=== PATIENT | male | born 1935 | race Caucasian/White ===

== ENCOUNTER 2016-10-09 12:29 | Emergency (ER) | payer MEDICARE, BC ==
--- NOTE | 2016-10-09 12:31 | EDM.PDOC ---
ED HPI GENERAL MEDICAL PROBLEM - General Chief Complaint: Respiratory Problem Stated Complaint: [id number] SOB Time Seen by Provider: 10/09/16 12:31 Source of Information: Reports: Patient, Old Records, RN, RN Notes Reviewed History Limitations: Reports: No Limitations - History of Present Illness INITIAL COMMENTS - FREE TEXT/NARRATIVE: Complaining of 3 days of progressively worsening SOB. History of COPD, was on home oxygen but "they took it away". Denies cough, fever, chills, chest pain, edema, abdominal, nausea or vomiting. Severity: Severe Improves with: Reports: None Worsens with: Reports: None Associated Symptoms: Reports: No Other Symptoms - Related Data Allergies Allergy/AdvReac Type Severity Reaction Status Date / Time No Known Allergies Allergy Verified 10/09/16 12:33 Home Meds: Home Meds Albuterol [IJD: Ventolin HFA] 3 puff INH Q4HR PRN 10/09/16 [History] Aspirin [Halfprin] 81 mg PO DAILY 10/09/16 [History] Budesonide [Pulmicort] 2 ml NEB BID 10/09/16 [History] Clopidogrel Bisulfate [Clopidogrel] 75 mg PO DAILY 10/09/16 [History] Diltiazem HCl [Dilt-XR] 120 mg PO DAILY 10/09/16 [History] Fluticasone Propionate [Fluticasone Propionate] 1 spray HELEN DAILY 10/09/16 [ History] Formoterol [Perforomist] 2 ml NEB BID 10/09/16 [History] Furosemide [Lasix] 20 mg PO DAILY 10/09/16 [History] LORazepam [LORazepam] 0.5 mg PO BID PRN 10/09/16 [History] Multivitamin [Multi-Day Vitamins] 1 tab PO DAILY 10/09/16 [History] Omeprazole 40 mg PO BEDTIME 10/09/16 [History] Potassium Chloride [Potassium Chloride] 10 meq PO DAILY 10/09/16 [History] Theophylline [Theophylline Anhydrous] 300 mg PO DAILY 10/09/16 [History] Tiotropium [Spiriva Handihaler] 2 puff INH DAILY 10/09/16 [History] atorvaSTATin Calcium [Atorvastatin Calcium] 40 mg PO BEDTIME 10/09/16 [History] Past Medical History Cardiovascular History: Reports: Hypertension, Other (See Below) (PVCs. Tachycardia) Respiratory History: Reports: COPD Psychiatric History: Reports: Anxiety Social & Family History - Family History Family Medical History: Noncontributory - Tobacco Use Smoking Status *Q: Current Every Day Smoker Years of Tobacco use: 65 Second Hand Smoke Exposure: No - Recreational Drug Use Recreational Drug Use: No - Living Situation & Occupation Living situation: Reports: , with Spouse Occupation: Retired ED ROS GENERAL - Review of Systems Review Of Systems: ROS reveals no pertinent complaints other than HPI. ED EXAM, GENERAL - Physical Exam Exam: See Below Exam Limited By: No Limitations General Appearance: Other (frail elderly, chronically ill appearing. ) Eye Exam: Bilateral Eye: Normal Inspection Ears: Normal External Exam, Normal Canal, Hearing Grossly Normal, Normal TMs Nose: Normal Inspection, Normal Mucosa, No Blood Throat/Mouth: Normal Inspection, Normal Lips, Normal Teeth, Normal Gums, Normal Oropharynx, Normal Voice, No Airway Compromise Head: Atraumatic, Normocephalic Neck: Normal Inspection, Supple, Non-Tender, Full Range of Motion Respiratory/Chest: Decreased Breath Sounds (bilateral bases, tight inspiratory/ expiratory wheezes.) Cardiovascular: Normal Peripheral Pulses, Regular Rate, Rhythm, No Edema, No Gallop, No JVD, No Murmur, No Rub GI/Abdominal: Normal Bowel Sounds, Soft, Non-Tender, No Organomegaly, No Distention, No Abnormal Bruit, No Mass (Male) Exam: Deferred Rectal (Males) Exam: Deferred Back Exam: Normal Inspection, Full Range of Motion, NT Extremities: Normal Inspection, Normal Range of Motion, Non-Tender, Normal Capillary Refill, No Pedal Edema Neurological: Alert, Oriented, CN II-XII Intact, Normal Cognition, Normal Gait, Normal Reflexes, No Motor/Sensory Deficits Psychiatric: Normal Affect, Normal Mood Skin Exam: Warm, Dry, Intact, Normal Color, No Rash Lymphatic: No Adenopathy EKG INTERPRETATION EKG Date: 10/09/16 Time: 12:43 Rhythm: other (sinus rhythm) Rate (beats/min): 82 [place]: normal P-wave: present QRS: other (LAFB. old anterior Q waves.) ST-T: normal QT: normal Course - Vital Signs Last Recorded V/S: Last Vital Signs Temp 36.4 C 10/09/16 12:33 Pulse 76 10/09/16 14:43 Resp 20 10/09/16 14:43 BP 135/84 10/09/16 14:43 Pulse Ox 93 L 10/09/16 14:43 - Orders/Labs/Meds Orders: Active Orders 24 hr Category Date Time Status EKG 12 Lead [EKG Documentation Completion] [RC] STAT Care 10/09/16 12:34 Active Peripheral IV Care [RC] . DIRECTED Care 10/09/16 12:35 Active RT Aerosol Therapy [RC] ASDIRECTED Care 10/09/16 12:34 Active CULTURE BLOOD [BC] Stat Lab 10/09/16 12:47 Received CULTURE BLOOD [BC] Stat Lab 10/09/16 12:52 Received THEOPHYLLINE [REF] Stat Lab 10/09/16 12:52 Received Sodium Chloride 0.9% [Saline Flush] Med 10/09/16 12:35 Active 10 ml FLUSH ASDIRECTED PRN Blood Culture x2 Reflex Set [OM.PC] Stat Oth 10/09/16 12:35 Ordered Peripheral IV Insertion Adult [OM.PC] Stat Oth 10/09/16 12:34 Ordered RT Supplemental Oxygen Titration [RESPCARE] Stat Oth 10/09/16 12:35 Active Medication Orders Sodium Chloride (Saline Flush) 10 ml FLUSH ASDIRECTED PRN PRN Reason: Keep Vein Open Last Admin: 10/09/16 12:51 Dose: 10 ml Labs: Laboratory Tests 10/09/16 10/09/16 10/09/16 Range/Units 12:52 12:52 12:52 WBC 8.4 (5.0-10.0) 10^3/uL RBC 4.68 (4.6-6.2) 10^6/uL Hgb 13.4 L (14.0-18.0) g/dL Hct 40.9 (40.0-54.0) % MCV 87.4 (80-100) fL MCH 28.6 (27.0-34.0) pg MCHC 32.8 L (33.0-35.0) g/dL Plt Count 220 (150-450) 10^3/uL Neut % (Auto) 72.8 (42.2-75.2) % Lymph % (Auto) 14.8 L (20.5-50.1) % [place] % (Auto) 9.3 H (2-8) % Eos % (Auto) 2.1 (1.0-3.0) % Baso % (Auto) 1.0 (0.0-1.0) % Sodium 141 (135-145) mmol/L Potassium 3.5 L (3.6-5.0) mmol/L Chloride 102 (101-111) mmol/L Carbon Dioxide 27.0 (21.0-31.0) mmol/L Anion Gap 15.5 BUN 16 (7-18) mg/dL Creatinine 1.5 H (0.6-1.3) mg/dL Est Cr Clr Drug Dosing TNP Estimated GFR (MDRD) 45 BUN/Creatinine Ratio 10.66 Glucose 124 H (74-105) mg/dL Lactic Acid 1.6 (0.5-2.2) mmol/L Calcium 9.1 (8.4-10.2) mg/dl Total Bilirubin 0.6 (0.2-1.0) mg/dL AST 18 (10-42) IU/L ALT 17 (10-60) IU/L Alkaline Phosphatase 81 (42-121) IU/L Troponin I < 0.02 (0.00-0.02) ng/ml B-Natriuretic Peptide 214 H (0-100) pg/ml Total Protein 6.7 (6.7-8.2) g/dl Albumin 4.0 (3.2-5.5) g/dl Globulin 2.7 Albumin/Globulin Ratio 1.48 Urine Color (YELLOW) Urine Appearance (CLEAR) Urine pH (5.0-9.0) Ur Specific [place] (1.005-1.030) Urine Protein (NEGATIVE) Urine Glucose (UA) (NEGATIVE) Urine Ketones (NEGATIVE) Urine Occult Blood (NEGATIVE) Urine Nitrite (NEGATIVE) Urine Bilirubin (NEGATIVE) Urine Urobilinogen (0.2-1.0) mg/dL Ur Leukocyte Esterase (NEGATIVE) Urine RBC /HPF Urine WBC (0-5/HPF) /HPF Ur Epithelial Cells /HPF Urine Bacteria (0-FEW/HPF) /HPF 10/09/16 Range/Units 13:15 WBC (5.0-10.0) 10^3/uL RBC (4.6-6.2) 10^6/uL Hgb (14.0-18.0) g/dL Hct (40.0-54.0) % MCV (80-100) fL MCH (27.0-34.0) pg MCHC (33.0-35.0) g/dL Plt Count (150-450) 10^3/uL Neut % (Auto) (42.2-75.2) % Lymph % (Auto) (20.5-50.1) % [place] % (Auto) (2-8) % Eos % (Auto) (1.0-3.0) % Baso % (Auto) (0.0-1.0) % Sodium (135-145) mmol/L Potassium (3.6-5.0) mmol/L Chloride (101-111) mmol/L Carbon Dioxide (21.0-31.0) mmol/L Anion Gap BUN (7-18) mg/dL Creatinine (0.6-1.3) mg/dL Est Cr Clr Drug Dosing Estimated GFR (MDRD) BUN/Creatinine Ratio Glucose (74-105) mg/dL Lactic Acid (0.5-2.2) mmol/L Calcium (8.4-10.2) mg/dl Total Bilirubin (0.2-1.0) mg/dL AST (10-42) IU/L ALT (10-60) IU/L Alkaline Phosphatase (42-121) IU/L Troponin I (0.00-0.02) ng/ml B-Natriuretic Peptide (0-100) pg/ml Total Protein (6.7-8.2) g/dl Albumin (3.2-5.5) g/dl Globulin Albumin/Globulin Ratio Urine Color Yellow (YELLOW) Urine Appearance Clear (CLEAR) Urine pH 7.0 (5.0-9.0) Ur Specific [place] 1.015 (1.005-1.030) Urine Protein Negative (NEGATIVE) Urine Glucose (UA) Negative (NEGATIVE) Urine Ketones Negative (NEGATIVE) Urine Occult Blood Negative (NEGATIVE) Urine Nitrite Negative (NEGATIVE) Urine Bilirubin Negative (NEGATIVE) Urine Urobilinogen 0.2 (0.2-1.0) mg/dL Ur Leukocyte Esterase Negative (NEGATIVE) Urine RBC Not seen /HPF Urine WBC 0-5 (0-5/HPF) /HPF Ur Epithelial Cells Rare /HPF Urine Bacteria Rare (0-FEW/HPF) /HPF Meds: Medications Generic Name Dose Route Start Last Admin Trade Name Freq PRN Reason Stop Dose Admin Sodium Chloride 10 ml 10/09/16 12:35 10/09/16 12:51 Saline Flush FLUSH 10 ml ASDIRECTED PRN Administration Keep Vein Open Discontinued Medications Generic Name Dose Route Start Last Admin Trade Name Susie PRN Reason Stop Dose Admin Albuterol/Ipratropium 3 ml 10/09/16 12:34 10/09/16 12:51 Duoneb 3.0-0.5 Mg/3 Ml NEB 10/09/16 12:35 3 ml ONETIME ONE Administration Methylprednisolone Sodium Succinate 125 mg 10/09/16 12:36 10/09/16 12:51 Solu-Medrol IVPUSH 10/09/16 12:37 125 mg ONETIME ONE Administration - Radiology Interpretation Free Text/Narrative:: Chest x-ray: Hyperinflation with flattened diaphragms. Chronic COPD changes. No focal infiltrate. See rad report. Departure - Departure Time of Disposition: 14:44 Disposition: DC/Tfer to Acute Hospital 02 Condition: serious Clinical Impression: COPD with acute exacerbation, Ventricular tachycardia (paroxysmal) - Discharge Information Forms: ED Department Discharge, Interfacility Transfer EMTALA - My Orders Last 24 Hours: My Active Orders 10/09/16 12:34 EKG 12 Lead [EKG Documentation Completion] [RC] STAT RT Aerosol Therapy [RC] ASDIRECTED Peripheral IV Insertion Adult [OM.PC] Stat 10/09/16 12:35 Peripheral IV Care [RC] . DIRECTED Sodium Chloride 0.9% [Saline Flush] 10 ml FLUSH ASDIRECTED PRN Blood Culture x2 Reflex Set [OM.PC] Stat RT Supplemental Oxygen Titration [RESPCARE] Stat 10/09/16 12:47 CULTURE BLOOD [BC] Stat 10/09/16 12:52 CULTURE BLOOD [BC] Stat THEOPHYLLINE [REF] Stat - Assessment/Plan Last 24 Hours: My Active Orders 10/09/16 12:34 EKG 12 Lead [EKG Documentation Completion] [RC] STAT RT Aerosol Therapy [RC] ASDIRECTED Peripheral IV Insertion Adult [OM.PC] Stat 10/09/16 12:35 Peripheral IV Care [RC] . DIRECTED Sodium Chloride 0.9% [Saline Flush] 10 ml FLUSH ASDIRECTED PRN Blood Culture x2 Reflex Set [OM.PC] Stat RT Supplemental Oxygen Titration [RESPCARE] Stat 10/09/16 12:47 CULTURE BLOOD [BC] Stat 10/09/16 12:52 CULTURE BLOOD [BC] Stat THEOPHYLLINE [REF] Stat
[2016-10-09] MEDS ORDERED: Albuterol/Ipratropium 3.0-0.5 MG/3 ML Neb Soln NEB ONE (12:34)
[2016-10-09] MEDS ORDERED: Sodium Chloride 0.9% 10 ML Syringe FLUSH PRN (12:35)
[2016-10-09] MEDS ORDERED: methylPREDNISolone Sodium Succinate 125 MG/2 ML SDV IVPUSH ONE (12:36)
[2016-10-09 13:30] LABS: CHLORIDE,CL 102 mmol/L (101-111); SODIUM,NA 141 mmol/L (135-145)
[2016-10-09 14:44] VITALS: BP 135/84
--- NOTE | 2016-10-31 09:31 | EKG ---
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 [facility] /[id number]
== END 2016-10-09 15:11 ==
LOC: DL.ED 12:29
DX: J44.1 Chronic obstructive pulmonary disease with (acute) exacerbation (principal); I47.2 Ventricular tachycardia; I10 Essential (primary) hypertension; Z79.899 Other long term (current) drug therapy; Z79.82 Long term (current) use of aspirin; F17.210 Nicotine dependence, cigarettes, uncomplicated
CPT/HCPCS: 36415; 71010; 80053; 80198; 81001; 83605; 83880; 84484; 85025; 87040; 93005; 93010; 94640; 96374; 99285; J2930; J7050; 99284

== ENCOUNTER 2017-01-29 14:10 | Emergency (ER) | payer MEDICARE, BC ==
[2017-01-29] MEDS ORDERED: Sodium Chloride 0.9% 10 ML Syringe FLUSH PRN (14:40)
[2017-01-29] MEDS ORDERED: LORazepam 2 MG/ML Syringe IVPUSH ONE (14:42)
--- NOTE | 2017-01-29 15:09 | EDM.PDOC ---
ED HPI GENERAL MEDICAL PROBLEM - General Chief Complaint: Respiratory Problem Stated Complaint: HARD TIME BREATHING [id number] Time Seen by Provider: 01/29/17 14:50 Source of Information: Reports: Patient, Family, RN Notes Reviewed History Limitations: Reports: No Limitations - History of Present Illness INITIAL COMMENTS - FREE TEXT/NARRATIVE: lWeakness with decreased appetite since 01/24/17. Discharged from hospital in September with CHF. Was seen by cardiology on 01/24/17. Minimal bloody nose on . No fever or chills. No nausea or vomiting. Sputum production white with occasional cough. Occasional pressure in chest and SOB. Scribed by Jada Tucker. Location: Reports: Chest Quality: Reports: Ache Severity: Moderate Improves with: Reports: None Worsens with: Reports: None Associated Symptoms: Reports: No Other Symptoms - Related Data Allergies Allergy/AdvReac Type Severity Reaction Status Date / Time No Known Allergies Allergy Verified 10/09/16 12:33 Home Meds: Home Meds Albuterol [IJD: Ventolin HFA] 3 puff INH Q4HR PRN 10/09/16 [History] Aspirin [Halfprin] 81 mg PO DAILY 10/09/16 [History] Budesonide [Pulmicort] 2 ml NEB BID 10/09/16 [History] Clopidogrel Bisulfate [Clopidogrel] 75 mg PO DAILY 10/09/16 [History] Diltiazem HCl [Dilt-XR] 120 mg PO DAILY 10/09/16 [History] Fluticasone Propionate [Fluticasone Propionate] 2 spray HELEN DAILY 10/09/16 [ History] Formoterol [Perforomist] 2 ml NEB BID 10/09/16 [History] Furosemide [Lasix] 40 mg PO DAILY 10/09/16 [History] Multivitamin [Multi-Day Vitamins] 1 tab PO DAILY 10/09/16 [History] Omeprazole 40 mg PO BEDTIME 10/09/16 [History] Potassium Chloride [Potassium Chloride] 10 meq PO DAILY 10/09/16 [History] Tiotropium [Spiriva Handihaler] 2 puff INH DAILY 10/09/16 [History] atorvaSTATin Calcium [Atorvastatin Calcium] 40 mg PO BEDTIME 10/09/16 [History] Past Medical History HEENT History: Reports: Impaired Vision Other HEENT History: wears glasses Cardiovascular History: Reports: Heart Failure, Hypertension Respiratory History: Reports: COPD Gastrointestinal History: Reports: GERD Psychiatric History: Reports: Anxiety Immunologic History: Reports: None Oncologic (Cancer) History: Reports: None Social & Family History - Family History Family Medical History: Noncontributory - Tobacco Use Smoking Status *Q: Former Smoker Years of Tobacco use: 50 Packs/Tins Daily: 0.5 Used Tobacco, but Quit: Yes Month Tobacco Last Used: october 15 Second Hand Smoke Exposure: No - Caffeine Use Caffeine Use: Reports: Coffee, Soda - Recreational Drug Use Recreational Drug Use: No - Living Situation & Occupation Living situation: Reports: , with Spouse Occupation: Retired ED ROS GENERAL - Review of Systems Review Of Systems: ROS reveals no pertinent complaints other than HPI. ED EXAM, GENERAL - Physical Exam Exam: See Below Exam Limited By: No Limitations General Appearance: Alert, WD/WN, No Apparent Distress Eye Exam: Bilateral Eye: Normal Inspection Ears: Normal External Exam, Normal Canal, Hearing Grossly Normal, Normal TMs Nose: Normal Inspection, Normal Mucosa, No Blood Throat/Mouth: Normal Inspection, Normal Lips, Normal Teeth, Normal Gums, Normal Oropharynx, Normal Voice, No Airway Compromise Head: Atraumatic, Normocephalic Neck: Normal Inspection, Supple, Non-Tender, Full Range of Motion Respiratory/Chest: Decreased Breath Sounds Cardiovascular: Other (distant heart sounds.) GI/Abdominal: Normal Bowel Sounds, Soft, Non-Tender, No Organomegaly, No Distention, No Abnormal Bruit, No Mass (Male) Exam: Deferred Rectal (Males) Exam: Deferred Back Exam: Normal Inspection, Full Range of Motion, NT Extremities: Normal Inspection, Normal Range of Motion, Non-Tender, Normal Capillary Refill, No Pedal Edema Neurological: Alert, Oriented, CN II-XII Intact, Normal Cognition, Normal Gait, Normal Reflexes, No Motor/Sensory Deficits Psychiatric: Anxious Skin Exam: Other (pale) Lymphatic: No Adenopathy EKG INTERPRETATION EKG Date: 01/29/17 Time: 14:55 Rhythm: NSR Comparison: NA - No Prior EKG Course - Vital Signs Last Recorded V/S: Last Vital Signs Temp 98.8 F 01/29/17 14:19 Pulse 94 01/29/17 15:41 Resp 16 01/29/17 15:41 BP 136/77 01/29/17 15:41 Pulse Ox 100 01/29/17 15:41 - Orders/Labs/Meds Orders: Active Orders 24 hr Category Date Time Status EKG Documentation Completion [RC] STAT Care 01/29/17 14:40 Active Peripheral IV Care [RC] . DIRECTED Care 01/29/17 14:41 Active Sodium Chloride 0.9% [Saline Flush] Med 01/29/17 14:40 Active 10 ml FLUSH ASDIRECTED PRN Peripheral IV Insertion Adult [OM.PC] Stat Oth 01/29/17 14:40 Ordered Medication Orders Sodium Chloride (Saline Flush) 10 ml FLUSH ASDIRECTED PRN PRN Reason: Keep Vein Open Last Admin: 01/29/17 15:36 Dose: 10 ml Labs: Laboratory Tests 01/29/17 01/29/17 01/29/17 Range/Units 14:50 14:50 14:50 WBC 8.4 (5.0-10.0) 10^3/uL RBC 4.11 L (4.6-6.2) 10^6/uL Hgb 12.4 L (14.0-18.0) g/dL Hct 37.3 L (40.0-54.0) % MCV 90.8 D (80-100) fL MCH 30.2 (27.0-34.0) pg MCHC 33.2 (33.0-35.0) g/dL Plt Count 210 (150-450) 10^3/uL Neut % (Auto) 65.5 (42.2-75.2) % Lymph % (Auto) 17.7 L (20.5-50.1) % [place] % (Auto) 11.3 H (2-8) % Eos % (Auto) 4.4 H (1.0-3.0) % Baso % (Auto) 1.1 H (0.0-1.0) % Sodium 141 (135-145) mmol/L Potassium 3.9 (3.6-5.0) mmol/L Chloride 98 L (101-111) mmol/L Carbon Dioxide 33.0 H (21.0-31.0) mmol/L Anion Gap 13.9 BUN 22 H (7-18) mg/dL Creatinine 1.3 (0.6-1.3) mg/dL Est Cr Clr Drug Dosing 43.85 mL/min Estimated GFR (MDRD) 53 BUN/Creatinine Ratio 16.92 Glucose 115 H (74-105) mg/dL Calcium 9.3 (8.4-10.2) mg/dl Total Bilirubin 0.7 (0.2-1.0) mg/dL AST 21 (10-42) IU/L ALT 23 (10-60) IU/L Alkaline Phosphatase 72 (42-121) IU/L Troponin I < 0.02 (0.00-0.02) ng/ml Total Protein 6.8 (6.7-8.2) g/dl Albumin 3.9 (3.2-5.5) g/dl Globulin 2.9 Albumin/Globulin Ratio 1.34 TSH, Ultra Sensitive 0.08 L (0.45-5.33) uIu/mL Meds: Medications Generic Name Dose Route Start Last Admin Trade Name Freq PRN Reason Stop Dose Admin Sodium Chloride 10 ml 01/29/17 14:40 01/29/17 15:36 Saline Flush FLUSH 10 ml ASDIRECTED PRN Administration Keep Vein Open Discontinued Medications Generic Name Dose Route Start Last Admin Trade Name Freq PRN Reason Stop Dose Admin Lorazepam 0.5 mg 01/29/17 14:42 01/29/17 15:35 Ativan IVPUSH 01/29/17 14:43 0.5 mg ONETIME ONE Administration Departure - Departure Time of Disposition: 17:13 Disposition: Home, Self-Care 01 Condition: Fair Clinical Impression: Hypothyroidism Qualifiers: Hypothyroidism type: unspecified Qualified Code(s): E03.9 - Hypothyroidism, unspecified - Discharge Information Instructions: Hypothyroidism Referrals: PCP,Not In Area [Primary Care Provider] - Forms: ED Department Discharge Additional Instructions: Call for an appointment with your primary care provider tomorrow am. Drink plenty of fluids. Rest. Take Ativan (lorazepam) as directed by your primary care provider. - My Orders Last 24 Hours: My Active Orders 01/29/17 14:40 EKG Documentation Completion [RC] STAT Sodium Chloride 0.9% [Saline Flush] 10 ml FLUSH ASDIRECTED PRN Peripheral IV Insertion Adult [OM.PC] Stat 01/29/17 14:41 Peripheral IV Care [RC] . DIRECTED - Assessment/Plan Last 24 Hours: My Active Orders 01/29/17 14:40 EKG Documentation Completion [RC] STAT Sodium Chloride 0.9% [Saline Flush] 10 ml FLUSH ASDIRECTED PRN Peripheral IV Insertion Adult [OM.PC] Stat 01/29/17 14:41 Peripheral IV Care [RC] . DIRECTED
[2017-01-29 15:17] LABS: CHLORIDE,CL 98 mmol/L (101-111); SODIUM,NA 141 mmol/L (135-145)
[2017-01-29 15:42] VITALS: BP 136/77
--- NOTE | 2017-02-13 07:46 | EKG ---
01/29/2017- DIMPLE MURPHY - This is a standard 12-lead EKG showing normal sinus rhythm with ventricular rate 89 beats per minute. Significant low voltage throughout. No significant ST-T changes. [facility] /[id number]
== END 2017-01-29 17:48 | disposition home or self-care (01) ==
LOC: DL.ED 14:10
DX: E03.9 Hypothyroidism, unspecified (principal); J44.9 Chronic obstructive pulmonary disease, unspecified; I11.0 Hypertensive heart disease with heart failure; I50.9 Heart failure, unspecified; K21.9 Gastro-esophageal reflux disease without esophagitis; F41.9 Anxiety disorder, unspecified; Z87.891 Personal history of nicotine dependence; Z79.82 Long term (current) use of aspirin; Z79.02 Long term (current) use of antithrombotics/antiplatelets; Z79.899 Other long term (current) drug therapy
CPT/HCPCS: 36415; 71010; 80053; 84443; 84484; 85025; 93005; 93010; 96374; 99285; J2060; J7050; 99284

== ENCOUNTER 2017-06-01 16:35 | Inpatient (IN) | payer MEDICARE, BC ==
[2017-06-01] MEDS ORDERED: Albuterol/Ipratropium 3.0-0.5 MG/3 ML Neb Soln NEB ONE (17:58)
[2017-06-01 18:48] LABS: CHLORIDE,CL 99 mmol/L (101-111); SODIUM,NA 139 mmol/L (135-145)
[2017-06-01] MEDS ORDERED: methylPREDNISolone Sodium Succinate 125 MG/2 ML SDV IVPUSH ONE (18:52)
[2017-06-01] MEDS ORDERED: cefTRIAXone 1 GM Vial IVPUSH SCH (20:00)
[2017-06-01] MEDS ORDERED: Zolpidem 5 MG Tab PO PRN (20:40)
[2017-06-01] MEDS ORDERED: Acetaminophen 325 MG Tab PO PRN (20:40)
[2017-06-01] MEDS ORDERED: Sodium Chloride 0.9% 10 ML Syringe FLUSH PRN (20:40)
--- NOTE | 2017-06-01 21:01 | PCM.HP ---
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 He also has a history of severe congestive heart failure with systolic dysfunction. Last echocardiogram showed an ejection fraction of 25-30%. He was offered to have AICD placement but due to his poor lung function he did not want that. The patient presented with increasing shortness of breath. This is limiting his activity. Getting weaker. The patient is also describing episodes of abdominal bloating and eating. Pepto- Bismol is helping. No associated constipation or diarrhea. No nausea or vomiting. No chest pain, no fever or chills. - Related Data Allergies/Adverse Reactions: Allergies Allergy/AdvReac Type Severity Reaction Status Date / Time No Known Allergies Allergy Verified 06/01/17 20:45 Home Medications: Home Meds Albuterol [IJD: Ventolin HFA] 3 puff INH Q4HR PRN 10/09/16 [History] Aspirin [Halfprin] 81 mg PO DAILY 10/09/16 [History] Budesonide [Pulmicort] 2 ml NEB BID 10/09/16 [History] Clopidogrel Bisulfate [Clopidogrel] 75 mg PO DAILY 10/09/16 [History] Fluticasone Propionate [Fluticasone Propionate] 2 spray HELEN DAILY 10/09/16 [ History] Formoterol [Perforomist] 2 ml NEB BID 10/09/16 [History] Furosemide [Lasix] 40 mg PO DAILY 10/09/16 [History] Multivitamin [Multi-Day Vitamins] 1 tab PO DAILY 10/09/16 [History] Omeprazole 40 mg PO BEDTIME 10/09/16 [History] Potassium Chloride [Potassium Chloride] 10 meq PO DAILY 10/09/16 [History] Tiotropium [Spiriva Handihaler] 2 puff INH DAILY 10/09/16 [History] atorvaSTATin Calcium [Atorvastatin Calcium] 40 mg PO BEDTIME 10/09/16 [History] Albuterol [Ventolin HFA] 3 puff INH Q4H PRN 06/01/17 [History] Carvedilol 6.25 mg PO 06/01/17 [History] LORazepam [Ativan] 0.5 mg PO TID PRN 06/01/17 [History] Lisinopril 20 mg PO DAILY 06/01/17 [History] Prednisone [IJD: Prednisone] 5 mg PO DAILY 06/01/17 [History] Past Medical History HEENT History: Reports: Impaired Vision Other HEENT History: wears glasses Cardiovascular History: Reports: Heart Failure, Hypertension Respiratory History: Reports: COPD Gastrointestinal History: Reports: GERD Psychiatric History: Reports: Anxiety Immunologic History: Reports: None Oncologic (Cancer) History: Reports: None Social & Family History - Family History Family Medical History: Noncontributory - Tobacco Use Smoking Status *Q: Current Some Day Smoker Years of Tobacco use: 70 Packs/Tins Daily: 1 Used Tobacco, but Quit: Yes Month Tobacco Last Used: october 15 Second Hand Smoke Exposure: No - Caffeine Use Caffeine Use: Reports: Coffee - Recreational Drug Use Recreational Drug Use: No - Living Situation & Occupation Living situation: Reports: , with Spouse Occupation: Retired H&P Review of Systems - Review of Systems: Review Of Systems: See Below General: Denies: Fever, Chills Pulmonary: Reports: Shortness of Breath, Cough (Usual). Denies: Sputum, Hemoptysis Cardiovascular: Denies: Chest Pain Gastrointestinal: Reports: Distension (HER eating). Denies: Abdominal Pain Psychiatric: Denies: Confusion Exam - Exam Exam: See Below - Vital Signs Vital Signs: Last Vital Signs Temp 36.6 C 06/01/17 17:38 Pulse 98 06/01/17 18:10 Resp 26 H 06/01/17 17:38 BP 111/64 06/01/17 17:38 Pulse Ox 96 06/01/17 18:10 Weight: 69.853 kg - Exam Quality Assessment: Supplemental Oxygen General: Alert, Oriented Neck: Supple Lungs: Decreased Breath Sounds Cardiovascular: Regular Rate, Regular Rhythm GI/Abdominal Exam: Normal Bowel Sounds, Soft, Non-Tender Extremities: No Pedal Edema - Patient Data Result Diagrams: 06/01/17 18:11 06/01/17 18:11 *Q Meaningful Use (ADM) - VTE *Q VTE Criteria *Q: - Stroke *Q Stroke Criteria *Q: - AMI *Q AMI Criteria *Q: - Problem List (1) Chronic systolic (congestive) heart failure SNOMED Code(s): 594489293 ICD Code: I50.22 - CHRONIC SYSTOLIC (CONGESTIVE) HEART FAILURE Status: Acute Current Visit: Yes (2) CAD (coronary artery disease) SNOMED Code(s): 92573927 ICD Code: I25.10 - ATHSCL HEART DISEASE OF [place] CORONARY ARTERY W/O ANG PCTRS Status: Acute Current Visit: Yes (3) COPD with acute exacerbation SNOMED Code(s): 324746142 ICD Code: J44.1 - CHRONIC OBSTRUCTIVE PULMONARY DISEASE W (ACUTE) EXACERBATION Status: Acute Current Visit: Yes Problem List Initiated/Reviewed/Updated: Yes Orders Last 24hrs: Active Orders 24 hr Category Date Time Status Patient Status [ADT] Routine ADT 06/01/17 20:40 Ordered Antiembolic Devices [RC] PER UNIT ROUTINE Care 06/01/17 20:43 Ordered Oxygen Therapy [RC] PRN Care 06/01/17 20:40 Ordered RT Aerosol Therapy [RC] ASDIRECTED Care 06/01/17 20:16 Active Up With Assistance [RC] ASDIRECTED Care 06/01/17 20:40 Ordered VTE/DVT Education [RC] PER UNIT ROUTINE Care 06/01/17 20:40 Ordered Vital Signs [RC] Q4H Care 06/01/17 20:40 Ordered Regular Diet [DIET] Diet 06/01/17 Breakfast Ordered BASIC METABOLIC PANEL,BMP [CHEM] AM Lab 06/02/17 05:15 Ordered CBC WITH AUTO DIFF [HEME] AM Lab 06/02/17 05:15 Ordered CULTURE SPUTUM + SMEAR [RM] Routine Lab 06/01/17 20:15 Uncollected Acetaminophen [Tylenol] Med 06/01/17 20:40 Ordered 650 mg PO Q4H PRN Albuterol [Proventil Neb Soln] Med 06/01/17 20:16 Active 2.5 mg NEB Q2H PRN Budesonide [Pulmicort] Med 06/02/17 07:00 Active 0.5 mg NEB BIDRT Heparin Sodium Med 06/01/17 22:00 Ordered 5,000 units SUBCUT Q8HR Metoclopramide [Reglan] Med 06/02/17 08:00 Ordered 10 mg PO TIDAC Sodium Chloride 0.9% [Saline Flush] Med 06/01/17 20:40 Ordered 10 ml FLUSH ASDIRECTED PRN Zolpidem [Ambien] Med 06/01/17 20:40 Ordered 5 mg PO BEDTIME PRN methylPREDNISolone Sod Succ [Solu-MEDROL] Med 06/01/17 22:00 Active 40 mg IVPUSH Q8H Antiembolic Hose [OM.PC] Per Unit Routine Oth 06/01/17 20:42 Ordered Saline Lock Insert [OM.PC] Routine Oth 06/01/17 20:40 Ordered Resuscitation Status Routine Resus Stat 06/01/17 20:40 Ordered Medication Orders Acetaminophen (Tylenol) 650 mg PO Q4H PRN PRN Reason: Pain (Mild 1-3)/fever Albuterol (Proventil Neb Soln) 2.5 mg NEB Q2H PRN PRN Reason: sob Budesonide (Pulmicort) 0.5 mg NEB BIDRT YANNA Heparin Sodium (Porcine) (Heparin Sodium) 5,000 units SUBCUT Q8HR YANNA Methylprednisolone Sodium Succinate (Solu-Medrol) 40 mg IVPUSH Q8H YANNA Metoclopramide HCl (Reglan) 10 mg PO TIDAC YANNA Sodium Chloride (Saline Flush) 10 ml FLUSH ASDIRECTED PRN PRN Reason: Keep Vein Open Sodium Chloride (Saline Flush) 10 ml FLUSH ASDIRECTED PRN PRN Reason: Keep Vein Open Zolpidem Tartrate (Ambien) 5 mg PO BEDTIME PRN PRN Reason: Sleep Assessment/Plan Comment:: The patient is an 81-year-old gentleman who presented with increasing shortness of breath with minimal activities. This is likely a combination of COPD and chronic systolic congestive heart failure. #1 acute COPD exacerbation We'll start the patient on higher dose of IV steroids, in fact after the steroid he received in the emergency room he is feeling quite well. His practically on maximal medical therapy for COPD Continue formoterol, Spiriva, theophylline, Perforomist, Pulmicort Continue albuterol as needed Taper steroids #2 chronic systolic congestive heart failure with ejection fraction of 25-30% The patient has no significant effusion on x-ray, no lower extremity edema I think this is compensated. Continue treatment with Coreg, lisinopril, Lasix, aspirin, Plavix #3 abdominal bloating We'll try to use scheduled metoclopramide #4 DVT prophylaxis will be subcutaneous heparin
[2017-06-01] MEDS ORDERED: Hydrocortisone Sodium Succinate 100 MG/2 ML SDV IVPUSH SCH (22:00)
[2017-06-01] MEDS ORDERED: Azithromycin 500 MG in Sodium Chloride 0.9% 250 ML IV SCH (22:00)
[2017-06-01] MEDS: Heparin Sodium 5,000 Units/ML Vial SUBCUT SCH (23:12)
[2017-06-01] MEDS: methylPREDNISolone Sodium Succinate 40 MG/1 ML SDV IVPUSH SCH (23:12)
[2017-06-02] MEDS ORDERED: Albuterol/Ipratropium 3.0-0.5 MG/3 ML Neb Soln NEB SCH (01:00)
[2017-06-02] MEDS: Albuterol 0.083% 2.5 MG/3 ML Neb Soln NEB PRN ×4 (02:46→15:50)
[2017-06-02] MEDS: methylPREDNISolone Sodium Succinate 40 MG/1 ML SDV IVPUSH SCH ×3 (06:25→22:43)
[2017-06-02] MEDS: Heparin Sodium 5,000 Units/ML Vial SUBCUT SCH ×3 (06:26→22:38)
[2017-06-02 06:58] LABS: CHLORIDE,CL 98 mmol/L (101-111); SODIUM,NA 136 mmol/L (135-145)
[2017-06-02] MEDS: Budesonide 0.5 MG/2 ML Neb Susp NEB SCH ×2 (07:00→22:28)
[2017-06-02] MEDS ORDERED: [UNRECOGNIZED DRUG - REMARK] NEB SCH (09:00)
[2017-06-02] MEDS ORDERED: Budesonide 0.5 MG/2 ML Neb Susp NEB SCH (09:00)
[2017-06-02] MEDS ORDERED: Fluticasone Propionate Nasal Spray 16 GM Bottle NASBOTH SCH ×2 (09:00→21:00)
--- NOTE | 2017-06-02 09:27 | EDM.PDOC ---
Scribed by Jada Tucker 06/02/17 0926 for Juan Parker MD ED HPI GENERAL MEDICAL PROBLEM - General Chief Complaint: Respiratory Problem Stated Complaint: HARD TO BREATH, [id number] Time Seen by Provider: 06/01/17 17:40 Source of Information: Reports: Patient, RN, RN Notes Reviewed History Limitations: Reports: No Limitations - History of Present Illness INITIAL COMMENTS - FREE TEXT/NARRATIVE: Patient arrives from home by POV with complaint of progressively worsening SOB, cough with small amount of white foamy sputum for 1 week. Patient also complains of abdominal bloating and distention after eating which causes him to feel even more short of breath. The abdominal bloating lasts a few hours then goes down.Denies constipation, nausea, vomiting or diarrhea. Denies fever, chills, orthopnea, chest pain or edema. Patient is on home 21/11 and uses his nebulizer treatments q 4 hours while awake. 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: Breathing Treatments, Other Medication(s), Oxygen - Related Data Allergies Allergy/AdvReac Type Severity Reaction Status Date / Time No Known Allergies Allergy Verified 06/01/17 20:45 Home Meds: Home Meds Albuterol [IJD: Ventolin HFA] 3 puff INH Q4HR PRN 10/09/16 [History] Aspirin [Halfprin] 81 mg PO DAILY 10/09/16 [History] Budesonide [Pulmicort] 2 ml NEB BID 10/09/16 [History] Clopidogrel Bisulfate [Clopidogrel] 75 mg PO DAILY 10/09/16 [History] Fluticasone Propionate [Fluticasone Propionate] 2 spray HELEN DAILY 10/09/16 [ History] Formoterol [Perforomist] 2 ml NEB BID 10/09/16 [History] Furosemide [Lasix] 40 mg PO DAILY 10/09/16 [History] Multivitamin [Multi-Day Vitamins] 1 tab PO DAILY 10/09/16 [History] Omeprazole 40 mg PO BEDTIME 10/09/16 [History] Potassium Chloride [Potassium Chloride] 10 meq PO DAILY 10/09/16 [History] Tiotropium [Spiriva Handihaler] 2 puff INH DAILY 10/09/16 [History] atorvaSTATin Calcium [Atorvastatin Calcium] 40 mg PO BEDTIME 10/09/16 [History] Albuterol [Ventolin HFA] 3 puff INH Q4H PRN 06/01/17 [History] Carvedilol 6.25 mg PO BID 06/01/17 [History] LORazepam [Ativan] 0.5 mg PO TID PRN 06/01/17 [History] Lisinopril 20 mg PO DAILY 06/01/17 [History] Prednisone [IJD: Prednisone] 5 mg PO DAILY 06/01/17 [History] Past Medical History HEENT History: Reports: Impaired Vision Other HEENT History: wears glasses Cardiovascular History: Reports: Heart Failure, Hypertension Respiratory History: Reports: COPD Gastrointestinal History: Reports: GERD Psychiatric History: Reports: Anxiety Immunologic History: Reports: None Oncologic (Cancer) History: Reports: None Social & Family History - Family History Family Medical History: Noncontributory - Tobacco Use Smoking Status *Q: Former Smoker Years of Tobacco use: 50 Packs/Tins Daily: 0.5 Used Tobacco, but Quit: Yes Month Tobacco Last Used: october 15 Second Hand Smoke Exposure: No - Caffeine Use Caffeine Use: Reports: Coffee, Soda - Recreational Drug Use Recreational Drug Use: No - Living Situation & Occupation Living situation: Reports: with Family Occupation: Retired ED ROS GENERAL - Review of Systems Review Of Systems: ROS reveals no pertinent complaints other than HPI. ED EXAM, GENERAL - Physical Exam Exam: See Below Exam Limited By: No Limitations General Appearance: Alert, Anxious, Other (chronically ill appearing. In no acute distress.) Eye Exam: Bilateral Eye: Normal Inspection Ears: Normal External Exam, Hearing Grossly Normal Nose: Normal Inspection, Normal Mucosa, No Blood Throat/Mouth: Normal Inspection, Normal Lips, Normal Teeth, Normal Gums, Normal Oropharynx, Normal Voice, No Airway Compromise Head: Atraumatic, Normocephalic Neck: Normal Inspection, Supple, Non-Tender, Full Range of Motion. No: Lymphadenopathy (L), Lymphadenopathy (R) Respiratory/Chest: No Respiratory Distress, No Accessory Muscle Use, Decreased Breath Sounds (bilateral), Prolonged Expiration, Other (coursebreath sounds with scattered wheezes. No rhonchi.). No: Rales, Stridor, Retractions Cardiovascular: Normal Peripheral Pulses, Regular Rate, Rhythm, No Edema, No Gallop, No JVD, No Murmur, No Rub GI/Abdominal: Normal Bowel Sounds, Soft, Non-Tender, No Abnormal Bruit, Distended (protruberant, slightly distended abdomen). No: Guarding, Rigid, Rebound (Male) Exam: Deferred Rectal (Males) Exam: Deferred Back Exam: Normal Inspection, Full Range of Motion, NT Extremities: Normal Inspection, Normal Range of Motion, Non-Tender, No Pedal Edema, Normal Capillary Refill Neurological: Alert, Oriented, CN II-XII Intact, Normal Cognition, No Motor/ Sensory Deficits, Other (generalized weakness) Psychiatric: Normal Affect, Anxious Skin Exam: Warm, Dry, Intact, Normal Color, No Rash Lymphatic: No Adenopathy EKG INTERPRETATION EKG Date: 06/01/17 Time: 17:27 Rhythm: Other (sinus tachycardia) Rate (Beats/Min): 100 [place]: Normal P-Wave: Present QRS: Other (left anterior fascicular block. PVC.) ST-T: Normal QT: Normal Course - Vital Signs Last Recorded V/S: Last Vital Signs Temp 36.1 C 06/02/17 07:44 Pulse 79 06/02/17 07:44 Resp 20 06/02/17 07:44 BP 106/61 06/02/17 07:44 Pulse Ox 97 06/02/17 07:44 - Orders/Labs/Meds Orders: Active Orders 24 hr Category Date Time Status RT Aerosol Therapy [RC] ASDIRECTED Care 06/01/17 17:58 Active CULTURE BLOOD [BC] Stat Lab 06/01/17 18:11 Received CULTURE BLOOD [BC] Stat Lab 06/01/17 18:15 Received CULTURE SPUTUM + SMEAR [RM] Routine Lab 06/01/17 20:15 Uncollected Albuterol [Proventil Neb Soln] Med 06/01/17 20:16 Active 2.5 mg NEB Q2H PRN Budesonide [Pulmicort] Med 06/02/17 07:00 Active 0.5 mg NEB BIDRT Sodium Chloride 0.9% [Saline Flush] Med 06/01/17 17:55 Active 10 ml FLUSH ASDIRECTED PRN methylPREDNISolone Sod Succ [Solu-MEDROL] Med 06/01/17 22:00 Active 40 mg IVPUSH Q8H Blood Culture x2 Reflex Set [OM.PC] Stat Oth 06/01/17 17:56 Ordered Peripheral IV Insertion Adult [OM.PC] Stat Oth 06/01/17 17:55 Ordered Medication Orders Acetaminophen (Tylenol) 650 mg PO Q4H PRN PRN Reason: Pain (Mild 1-3)/fever Last Admin: 06/02/17 03:00 Dose: 650 mg Albuterol (Proventil Neb Soln) 2.5 mg NEB Q2H PRN PRN Reason: sob Last Admin: 06/02/17 06:59 Dose: 2.5 mg Admin: 06/02/17 02:46 Dose: 2.5 mg Aspirin (Halfprin) 81 mg PO DAILY YANNA Atorvastatin Calcium (Lipitor) 40 mg PO BEDTIME YANNA Budesonide (Pulmicort) 0.5 mg NEB BIDRT [facility] Last Admin: 06/02/17 07:00 Dose: 0.5 mg Carvedilol (Coreg) 6.25 mg PO BID [facility] Clopidogrel Bisulfate (Plavix) 75 mg PO DAILY [facility] Fluticasone Propionate (Flonase) 0 gm NASBOTH DAILY [facility] Furosemide (Lasix) 40 mg PO DAILY [facility] Heparin Sodium (Porcine) (Heparin Sodium) 5,000 units SUBCUT Q8HR [facility] Last Admin: 06/02/17 06:26 Dose: 5,000 units Admin: 06/01/17 23:12 Dose: 5,000 units Lisinopril (Prinivil) 20 mg PO DAILY [facility] Methylprednisolone Sodium Succinate (Solu-Medrol) 40 mg IVPUSH Q8H [facility] Last Admin: 06/02/17 06:25 Dose: 40 mg Admin: 06/01/17 23:12 Dose: 40 mg Metoclopramide HCl (Reglan) 10 mg PO TIDAC [facility] Multivitamins (Thera) 1 each PO DAILY [facility] Non-Form (Perforomist 2 Ml Neb) 2 ml NEB BID [facility] Omeprazole (Omeprazole) 40 mg PO BEDTIME YANNA Potassium Chloride (Klor-Con 10) 10 meq PO DAILY [facility] Sodium Chloride (Saline Flush) 10 ml FLUSH ASDIRECTED PRN PRN Reason: Keep Vein Open Sodium Chloride (Saline Flush) 10 ml FLUSH ASDIRECTED PRN PRN Reason: Keep Vein Open Tiotropium [place] (Spiriva Handihaler) 18 mcg INH DAILYRT [facility] Zolpidem Tartrate (Ambien) 5 mg PO BEDTIME PRN PRN Reason: Sleep Labs: Laboratory Tests 06/01/17 06/01/17 06/01/17 Range/Units 18:11 18:11 18:15 WBC 10.0 (5.0-10.0) 10^3/uL RBC 3.95 L (4.6-6.2) 10^6/uL Hgb 11.9 L (14.0-18.0) g/dL Hct 36.4 L (40.0-54.0) % MCV 92.2 (80-100) fL MCH 30.1 (27.0-34.0) pg MCHC 32.7 L (33.0-35.0) g/dL Plt Count 200 (150-450) 10^3/uL Neut % (Auto) 73.2 (42.2-75.2) % Lymph % (Auto) 14.1 L (20.5-50.1) % [place] % (Auto) 10.6 H (2-8) % Eos % (Auto) 1.7 (1.0-3.0) % Baso % (Auto) 0.4 (0.0-1.0) % Sodium 139 (135-145) mmol/L Potassium 4.0 (3.6-5.0) mmol/L Chloride 99 L (101-111) mmol/L Carbon Dioxide 32.0 H (21.0-31.0) mmol/L Anion Gap 12.0 BUN 25 H (7-18) mg/dL Creatinine 1.1 (0.6-1.3) mg/dL Est Cr Clr Drug Dosing 52.92 mL/min Estimated GFR (MDRD) > 60 BUN/Creatinine Ratio 22.72 Glucose 116 H (74-105) mg/dL Lactic Acid 0.9 (0.5-2.2) mmol/L Calcium 8.8 (8.4-10.2) mg/dl Total Bilirubin 0.4 (0.2-1.0) mg/dL AST 19 (10-42) IU/L ALT 23 (10-60) IU/L Alkaline Phosphatase 68 (42-121) IU/L Troponin I < 0.02 (0.00-0.02) ng/ml B-Natriuretic Peptide 73 (0-100) pg/ml Total Protein 6.4 L (6.7-8.2) g/dl Albumin 3.4 (3.2-5.5) g/dl Globulin 3.0 Albumin/Globulin Ratio 1.13 Amylase 96 (28-100) U/L Lipase 19 L (22-51) U/L Meds: Medications Generic Name Dose Route Start Last Admin Trade Name Freq PRN Reason Stop Dose Admin Acetaminophen 650 mg 06/01/17 20:40 06/02/17 03:00 Tylenol PO 650 mg Q4H PRN Administration Pain (Mild 1-3)/fever Albuterol 2.5 mg 06/01/17 20:16 06/02/17 06:59 Proventil Neb Soln NEB 2.5 mg Q2H PRN Administration sob Aspirin 81 mg 06/02/17 09:00 Halfprin PO DAILY YANNA Atorvastatin Calcium 40 mg 06/02/17 21:00 Lipitor PO BEDTIME YANNA Budesonide 0.5 mg 06/02/17 07:00 06/02/17 07:00 Pulmicort NEB 0.5 mg BIDRT YANNA Administration Carvedilol 6.25 mg 06/02/17 09:00 Coreg PO BID YANNA Clopidogrel Bisulfate 75 mg 06/02/17 09:00 Plavix PO DAILY YANNA Fluticasone Propionate 0 gm 06/02/17 09:00 Flonase NASBOTH DAILY YANNA Furosemide 40 mg 06/02/17 09:00 Lasix PO DAILY [facility] Heparin Sodium (Porcine) 5,000 units 06/01/17 22:00 06/02/17 06:26 Heparin Sodium SUBCUT 5,000 units Q8HR YANNA Administration Lisinopril 20 mg 06/02/17 09:00 Prinivil PO DAILY YANNA Methylprednisolone Sodium Succinate 40 mg 06/01/17 22:00 06/02/17 06:25 Solu-Medrol IVPUSH 40 mg Q8H YANNA Administration Metoclopramide HCl 10 mg 06/02/17 08:00 Reglan PO TIDAC [facility] Multivitamins 1 each 06/02/17 09:00 Thera PO DAILY [facility] Non-Form 2 ml 06/02/17 09:00 Perforomist 2 Ml Neb NEB BID YANNA Omeprazole 40 mg 06/02/17 21:00 Omeprazole PO BEDTIME YANNA Potassium Chloride 10 meq 06/02/17 09:00 Klor-Con 10 PO DAILY YANNA Sodium Chloride 10 ml 06/01/17 17:55 Saline Flush FLUSH ASDIRECTED PRN Keep Vein Open Sodium Chloride 10 ml 06/01/17 20:40 Saline Flush FLUSH ASDIRECTED PRN Keep Vein Open Tiotropium [place] 18 mcg 06/02/17 07:00 Spiriva Handihaler INH DAILYRT YANNA Zolpidem Tartrate 5 mg 06/01/17 20:40 Ambien PO BEDTIME PRN Sleep Discontinued Medications Generic Name Dose Route Start Last Admin Trade Name Freq PRN Reason Stop Dose Admin Albuterol/Ipratropium 3 ml 06/01/17 17:58 06/01/17 18:09 Duoneb 3.0-0.5 Mg/3 Ml NEB 06/01/17 17:59 3 ml ONETIME ONE Administration Albuterol/Ipratropium 3 ml 06/02/17 01:00 Duoneb 3.0-0.5 Mg/3 Ml NEB Q6HRRT YANNA Ceftriaxone Sodium 1 gm 06/01/17 20:00 Rocephin IVPUSH Q24H YANNA Hydrocortisone Sodium Succinate 40 mg 06/01/17 22:00 Solu-Cortef IVPUSH Q8H YANNA Azithromycin 500 mg/ Sodium 250 mls @ 250 mls/hr 06/01/17 22:00 Chloride IV Q24H YANNA Methylprednisolone Sodium Succinate 125 mg 06/01/17 18:52 06/01/17 19:01 Solu-Medrol IVPUSH 06/01/17 18:53 125 mg ONETIME ONE Administration - Radiology Interpretation Free Text/Narrative:: Chest x-ray: Findings suggestive of possible underlying COPD and/or chronic bronchitis. See Rad report. Abdomen:No acute intraabdominal changes. See rad report. Departure - Departure Time of Disposition: 19:10 ((admit to Dr. Mercer)) Disposition: Admitted As Inpatient 67 Condition: Fair Clinical Impression: COPD with acute exacerbation, Hypoxia - Discharge Information - My Orders Last 24 Hours: My Active Orders 06/01/17 17:55 Sodium Chloride 0.9% [Saline Flush] 10 ml FLUSH ASDIRECTED PRN Peripheral IV Insertion Adult [OM.PC] Stat 06/01/17 17:56 Blood Culture x2 Reflex Set [OM.PC] Stat 06/01/17 17:58 RT Aerosol Therapy [RC] ASDIRECTED 06/01/17 18:11 CULTURE BLOOD [BC] Stat 06/01/17 18:15 CULTURE BLOOD [BC] Stat - Assessment/Plan Last 24 Hours: My Active Orders 06/01/17 17:55 Sodium Chloride 0.9% [Saline Flush] 10 ml FLUSH ASDIRECTED PRN Peripheral IV Insertion Adult [OM.PC] Stat 06/01/17 17:56 Blood Culture x2 Reflex Set [OM.PC] Stat 06/01/17 17:58 RT Aerosol Therapy [RC] ASDIRECTED 06/01/17 18:11 CULTURE BLOOD [BC] Stat 06/01/17 18:15 CULTURE BLOOD [BC] Stat I have read and agree with the documentation that has been completed regarding this visit. By signing this record, I attest that the documentation was completed in my physical presence and is an accurate record of the encounter.
[2017-06-02] MEDS: Multivitamins,Therapeutic Tab PO SCH (10:03)
[2017-06-02] MEDS: Furosemide 40 MG Tab PO SCH (10:04)
[2017-06-02] MEDS: Aspirin 81 MG Tab.EC PO SCH (10:04)
[2017-06-02] MEDS: Clopidogrel 75 MG Tab PO SCH (10:04)
[2017-06-02] MEDS: Carvedilol 6.25 MG Tab PO SCH ×2 (10:04→22:32)
[2017-06-02] MEDS: Lisinopril 20 MG Tab PO SCH (10:04)
[2017-06-02] MEDS: Potassium Chloride 10 MEQ Tab.ER PO SCH (10:04)
[2017-06-02] MEDS: Tiotropium Inhaler 18 MCG Inhalation Powder Cap Kit of 5 INH SCH (10:24)
[2017-06-02] MEDS: Metoclopramide 10 MG Tab PO SCH ×4 (10:26→17:23)
--- NOTE | 2017-06-02 12:20 | PCM.PN ---
- General Info Date of Service: 06/02/17 Admission Dx/Problem (Free Text): Admission Diagnosis/Problem Admission Diagnosis/Problem COPD, severe chronic obstructive pulmonary disease Subjective Update: Overnight remained stable. Continued on oxygen. Shortness of breath that has improved since admission. He was able to eat breakfast without problem. No complains of chest pain, abdominal pain. No bloating this morning. No diarrhea - Patient Data Vitals - Most Recent: Last Vital Signs Temp 36.2 C 06/02/17 11:55 Pulse 84 06/02/17 11:55 Resp 20 06/02/17 11:55 BP 115/52 L 06/02/17 11:55 Pulse Ox 97 06/02/17 11:55 Weight - Most Recent: 69.853 kg I&O - Last 24 Hours: Intake & Output 06/01/17 06/02/17 06/02/17 22:59 06:59 14:59 Output Total 120 Balance -120 Lab Results Last 24 Hours: Laboratory Results - last 24 hr 06/01/17 06/02/17 06/02/17 Range/Units 20:43 06:11 06:11 WBC 9.7 (5.0-10.0) 10^3/uL RBC 4.00 L (4.6-6.2) 10^6/uL Hgb 11.9 L (14.0-18.0) g/dL Hct 36.3 L (40.0-54.0) % MCV 90.8 (80-100) fL MCH 29.8 (27.0-34.0) pg MCHC 32.8 L (33.0-35.0) g/dL Plt Count 186 (150-450) 10^3/uL Neut % (Auto) 90.0 H (42.2-75.2) % Lymph % (Auto) 8.7 L (20.5-50.1) % [place] % (Auto) 1.2 L (2-8) % Eos % (Auto) 0.0 L (1.0-3.0) % Baso % (Auto) 0.1 (0.0-1.0) % Sodium 136 (135-145) mmol/L Potassium 4.0 (3.6-5.0) mmol/L Chloride 98 L (101-111) mmol/L Carbon Dioxide 31.0 (21.0-31.0) mmol/L Anion Gap 11.0 BUN 26 H (7-18) mg/dL Creatinine 1.1 (0.6-1.3) mg/dL Est Cr Clr Drug Dosing 52.92 mL/min Estimated GFR (MDRD) > 60 Glucose 174 H (74-105) mg/dL Calcium 9.2 (8.4-10.2) mg/dl Urine Color Yellow (YELLOW) Urine Appearance Clear (CLEAR) Urine pH 7.0 (5.0-9.0) Ur Specific [place] 1.015 (1.005-1.030) Urine Protein Negative (NEGATIVE) Urine Glucose (UA) Negative (NEGATIVE) Urine Ketones Negative (NEGATIVE) Urine Occult Blood Negative (NEGATIVE) Urine Nitrite Negative (NEGATIVE) Urine Bilirubin Negative (NEGATIVE) Urine Urobilinogen 0.2 (0.2-1.0) mg/dL Ur Leukocyte Esterase Negative (NEGATIVE) Urine RBC 0-5 /HPF Urine WBC 0-5 (0-5/HPF) /HPF Ur Epithelial Cells Occasional /HPF Urine Bacteria Occasional (0-FEW/HPF) /HPF Med Orders - Current: Current Medications Acetaminophen (Tylenol) 650 mg PO Q4H PRN PRN Reason: Pain (Mild 1-3)/fever Last Admin: 06/02/17 03:00 Dose: 650 mg Albuterol (Proventil Neb Soln) 2.5 mg NEB Q2H PRN PRN Reason: sob Last Admin: 06/02/17 11:54 Dose: 2.5 mg Aspirin (Halfprin) 81 mg PO DAILY [facility] Last Admin: 06/02/17 10:04 Dose: 81 mg Atorvastatin Calcium (Lipitor) 40 mg PO BEDTIME [facility] Budesonide (Pulmicort) 0.5 mg NEB BIDRT [facility] Last Admin: 06/02/17 07:00 Dose: 0.5 mg Carvedilol (Coreg) 6.25 mg PO BID [facility] Last Admin: 06/02/17 10:04 Dose: 6.25 mg Clopidogrel Bisulfate (Plavix) 75 mg PO DAILY [facility] Last Admin: 06/02/17 10:04 Dose: 75 mg Fluticasone Propionate (Flonase) 0 gm NASBOTH DAILY [facility] Furosemide (Lasix) 40 mg PO DAILY [facility] Last Admin: 06/02/17 10:04 Dose: 40 mg Heparin Sodium (Porcine) (Heparin Sodium) 5,000 units SUBCUT Q8HR [facility] Last Admin: 06/02/17 06:26 Dose: 5,000 units Lisinopril (Prinivil) 20 mg PO DAILY [facility] Last Admin: 06/02/17 10:04 Dose: 20 mg Methylprednisolone Sodium Succinate (Solu-Medrol) 40 mg IVPUSH Q8H [facility] Last Admin: 06/02/17 06:25 Dose: 40 mg Metoclopramide HCl (Reglan) 10 mg PO TIDAC [facility] Last Admin: 06/02/17 10:26 Dose: 10 mg Multivitamins (Thera) 1 each PO DAILY [facility] Last Admin: 06/02/17 10:03 Dose: 1 each Non-Form (Perforomist 2 Ml Neb) 2 ml NEB BID [facility] Omeprazole (Omeprazole) 40 mg PO BEDTIME [facility] Potassium Chloride (Klor-Con 10) 10 meq PO DAILY [facility] Last Admin: 06/02/17 10:04 Dose: 10 meq Sodium Chloride (Saline Flush) 10 ml FLUSH ASDIRECTED PRN PRN Reason: Keep Vein Open Sodium Chloride (Saline Flush) 10 ml FLUSH ASDIRECTED PRN PRN Reason: Keep Vein Open Tiotropium [place] (Spiriva Handihaler) 18 mcg INH DAILYRT [facility] Last Admin: 06/02/17 10:24 Dose: 18 mcg Zolpidem Tartrate (Ambien) 5 mg PO BEDTIME PRN PRN Reason: Sleep Discontinued Medications Albuterol/Ipratropium (Duoneb 3.0-0.5 Mg/3 Ml) 3 ml NEB ONETIME ONE Stop: 06/01/17 17:59 Last Admin: 06/01/17 18:09 Dose: 3 ml Albuterol/Ipratropium (Duoneb 3.0-0.5 Mg/3 Ml) 3 ml NEB Q6HRRT [facility] Ceftriaxone Sodium (Rocephin) 1 gm IVPUSH Q24H [facility] Hydrocortisone Sodium Succinate (Solu-Cortef) 40 mg IVPUSH Q8H [facility] Azithromycin 500 mg/ Sodium (Chloride) 250 mls @ 250 mls/hr IV Q24H [facility] Methylprednisolone Sodium Succinate (Solu-Medrol) 125 mg IVPUSH ONETIME ONE Stop: 06/01/17 18:53 Last Admin: 06/01/17 19:01 Dose: 125 mg - Exam Quality Assessment: Supplemental Oxygen General: Alert, Oriented Lungs: Normal Respiratory Effort, Decreased Breath Sounds. No: Wheezing Cardiovascular: Regular Rate, Regular Rhythm GI/Abdominal Exam: Normal Bowel Sounds, Soft, Non-Tender, No Distention Extremities: No Pedal Edema - Problem List & Annotations (1) Chronic systolic (congestive) heart failure SNOMED Code(s): 652363679 Code(s): I50.22 - CHRONIC SYSTOLIC (CONGESTIVE) HEART FAILURE Status: Acute Current Visit: Yes (2) CAD (coronary artery disease) SNOMED Code(s): 56666885 Code(s): I25.10 - ATHSCL HEART DISEASE OF [place] CORONARY ARTERY W/O ANG PCTRS Status: Acute Current Visit: Yes (3) COPD with acute exacerbation SNOMED Code(s): 986363785 Code(s): J44.1 - CHRONIC OBSTRUCTIVE PULMONARY DISEASE W (ACUTE) EXACERBATION Status: Acute Current Visit: Yes - Problem List Review Problem List Initiated/Reviewed/Updated: Yes - My Orders Last 24 Hours: My Active Orders 06/02/17 07:00 Tiotropium [Spiriva HandiHaler] 18 mcg INH DAILYRT 06/02/17 09:00 Aspirin [Halfprin] 81 mg PO DAILY Carvedilol [Coreg] 6.25 mg PO BID Clopidogrel [Plavix] 75 mg PO DAILY Fluticasone Propionate [Flonase] 0 gm NASBOTH DAILY Formoterol [Perforomist] 2 ml NEB BID Furosemide [Lasix] 40 mg PO DAILY Lisinopril [Prinivil] 20 mg PO DAILY Multivitamins,Therapeutic [Thera] 1 each PO DAILY Potassium Chloride [Klor-Con 10] 10 meq PO DAILY 06/02/17 21:00 Omeprazole 40 mg PO BEDTIME atorvaSTATin [Lipitor] 40 mg PO BEDTIME - Plan Plan:: The patient is an 81-year-old gentleman who presented with increasing shortness of breath with minimal activities. This is likely a combination of COPD and chronic systolic congestive heart failure. #1 acute COPD exacerbation We'll continue the patient on higher dose of IV steroids. His practically on maximal medical therapy for COPD Continue formoterol, Spiriva, theophylline, Perforomist, Pulmicort Continue albuterol as needed Taper steroids slowly #2 chronic systolic congestive heart failure with ejection fraction of 25-30% The patient has no significant effusion on x-ray, no lower extremity edema I think this is compensated. Continue treatment with Coreg, lisinopril, Lasix, aspirin, Plavix I believe the patient's limited exercise tolerance, shortness of breath with activity likely relates to the combination of COPD and systolic dysfunction Follow-up with cardiology. #3 abdominal bloating We'll monitor with scheduled metoclopramide #4 DVT prophylaxis will be subcutaneous heparin
[2017-06-02] MEDS ORDERED: LORazepam 0.5 MG Tab PO PRN ×2 (15:19→15:22)
[2017-06-02] MEDS ORDERED: LORazepam 1 MG Tab PO ONE (15:23)
[2017-06-02] MEDS ORDERED: Omeprazole 20 MG Cap.CR PO SCH (21:00)
[2017-06-02] MEDS ORDERED: atorvaSTATin 20 MG Tab PO SCH (21:00)
[2017-06-02] MEDS: Sodium Chloride 0.9% 10 ML Syringe FLUSH PRN ×2 (22:43→22:49)
[2017-06-03] MEDS: Heparin Sodium 5,000 Units/ML Vial SUBCUT SCH ×2 (05:20→14:01)
[2017-06-03] MEDS: Sodium Chloride 0.9% 10 ML Syringe FLUSH PRN ×2 (05:23→05:28)
[2017-06-03] MEDS: methylPREDNISolone Sodium Succinate 40 MG/1 ML SDV IVPUSH SCH ×2 (05:23→14:02)
[2017-06-03] MEDS: Albuterol 0.083% 2.5 MG/3 ML Neb Soln NEB PRN ×3 (08:02→15:03)
[2017-06-03] MEDS: Budesonide 0.5 MG/2 ML Neb Susp NEB SCH (08:03)
[2017-06-03] MEDS: Potassium Chloride 10 MEQ Tab.ER PO SCH (08:28)
[2017-06-03] MEDS: Furosemide 40 MG Tab PO SCH (08:28)
[2017-06-03] MEDS: Multivitamins,Therapeutic Tab PO SCH (08:28)
[2017-06-03] MEDS: Carvedilol 6.25 MG Tab PO SCH (08:29)
[2017-06-03] MEDS: Aspirin 81 MG Tab.EC PO SCH (08:29)
[2017-06-03] MEDS: Clopidogrel 75 MG Tab PO SCH (08:29)
[2017-06-03] MEDS: Lisinopril 20 MG Tab PO SCH (08:29)
[2017-06-03] MEDS: Tiotropium Inhaler 18 MCG Inhalation Powder Cap Kit of 5 INH SCH (08:31)
[2017-06-03] MEDS: Metoclopramide 10 MG Tab PO SCH ×2 (08:32→10:16)
[2017-06-03] MEDS ORDERED: Lactulose Soln 10 GM/15 ML 30 ML UD Cup PO PRN (11:30)
--- NOTE | 2017-06-03 11:30 | PCM.DCSUM1 ---
Discharge Summary - Hospital Course Free Text/Narrative:: The patient is an 81-year-old gentleman who presented with increasing shortness of breath with minimal activities. This is likely a combination of COPD and chronic systolic congestive heart failure. #1 acute COPD exacerbation We'll taper higher dose of steroids. His practically on maximal medical therapy for COPD Continue formoterol, Spiriva, theophylline, Perforomist, Pulmicort Continue albuterol as needed Taper steroids slowly #2 chronic systolic congestive heart failure with ejection fraction of 25-30% The patient has no significant effusion on x-ray, no lower extremity edema I think this is compensated. Continue treatment with Coreg, lisinopril, Lasix, aspirin, Plavix I believe the patient's limited exercise tolerance, shortness of breath with activity likely relates to the combination of COPD and systolic dysfunction Follow-up with cardiology. #3 abdominal bloating follow symptoms with scheduled metoclopramide - Discharge Data Discharge Date: 06/03/17 Discharge Disposition: Home, Self-Care 01 Condition: Good - Discharge Diagnosis/Problem(s) (1) Chronic systolic (congestive) heart failure SNOMED Code(s): 558057170 ICD Code: I50.22 - CHRONIC SYSTOLIC (CONGESTIVE) HEART FAILURE Status: Acute Current Visit: Yes (2) CAD (coronary artery disease) SNOMED Code(s): 69558582 ICD Code: I25.10 - ATHSCL HEART DISEASE OF [place] CORONARY ARTERY W/O ANG PCTRS Status: Acute Current Visit: Yes (3) COPD with acute exacerbation SNOMED Code(s): 361437947 ICD Code: J44.1 - CHRONIC OBSTRUCTIVE PULMONARY DISEASE W (ACUTE) EXACERBATION Status: Acute Current Visit: Yes - Patient Instructions Diet: Heart Healthy Diet Activity: As Tolerated - Discharge Plan Prescriptions/Med Rec: Metoclopramide [Reglan] 10 mg PO TIDAC #30 tab predniSONE [predniSONE Dose Pack] See Taper PO ASDIRECTED #30 dospk Home Medications: Home Meds Albuterol [IJD: Ventolin HFA] 3 puff INH Q4HR PRN 10/09/16 [History] Aspirin [Halfprin] 81 mg PO DAILY 10/09/16 [History] Budesonide [Pulmicort] 2 ml NEB BID 10/09/16 [History] Clopidogrel Bisulfate [Clopidogrel] 75 mg PO DAILY 10/09/16 [History] Fluticasone Propionate 2 spray [place] DAILY 10/09/16 [History] Formoterol [Perforomist] 2 ml NEB BID 10/09/16 [History] Furosemide [Lasix] 40 mg PO DAILY 10/09/16 [History] Multivitamin [Multi-Day Vitamins] 1 tab PO DAILY 10/09/16 [History] Omeprazole 40 mg PO BEDTIME 10/09/16 [History] Potassium Chloride 10 meq PO DAILY 10/09/16 [History] Tiotropium [Spiriva Handihaler] 2 puff INH DAILY 10/09/16 [History] atorvaSTATin Calcium [Atorvastatin Calcium] 40 mg PO BEDTIME 10/09/16 [History] Albuterol [Ventolin HFA] 3 puff INH Q4H PRN 06/01/17 [History] Carvedilol 6.25 mg PO BID 06/01/17 [History] LORazepam [Ativan] 0.5 mg PO TID PRN 06/01/17 [History] Lisinopril 20 mg PO DAILY 06/01/17 [History] Metoclopramide [Reglan] 10 mg PO TIDAC #30 tab 06/03/17 [Rx] predniSONE [predniSONE Dose Pack] See Taper PO ASDIRECTED #30 dospk 06/03/17 [Rx ] Patient Handouts: Shortness of Breath, [id number], Chronic Obstructive Pulmonary Disease, [id number] Referrals: PCP,None [Primary Care Provider] - (in 3-4 days) - Discharge Summary/Plan Comment DC Time >30 min.: No - General Info Date of Service: 06/03/17 - Review of Systems General: Denies: Fever Pulmonary: Reports: Shortness of Breath (chronic) Cardiovascular: Denies: Chest Pain Gastrointestinal: Denies: Abdominal Pain Neurological: Denies: Confusion - Patient Data Vitals - Most Recent: Last Vital Signs Temp 36.8 C 06/03/17 08:36 Pulse 87 06/03/17 08:36 Resp 20 06/03/17 08:36 BP 102/62 06/03/17 08:36 Pulse Ox 99 06/03/17 08:36 Weight - Most Recent: 69.853 kg I&O - Last 24 hours: Intake & Output 06/02/17 06/03/17 06/03/17 22:59 06:59 14:59 Intake Total 300 375 Output Total 765 Balance 300 -390 Med Orders - Current: Current Medications Acetaminophen (Tylenol) 650 mg PO Q4H PRN PRN Reason: Pain (Mild 1-3)/fever Last Admin: 06/02/17 03:00 Dose: 650 mg Albuterol (Proventil Neb Soln) 2.5 mg NEB Q2H PRN PRN Reason: sob Last Admin: 06/03/17 08:02 Dose: 2.5 mg Aspirin (Halfprin) 81 mg PO DAILY [facility] Last Admin: 06/03/17 08:29 Dose: 81 mg Atorvastatin Calcium (Lipitor) 40 mg PO BEDTIME [facility] Last Admin: 06/02/17 22:32 Dose: 40 mg Budesonide (Pulmicort) 0.5 mg NEB BIDRT [facility] Last Admin: 06/03/17 08:03 Dose: 0.5 mg Carvedilol (Coreg) 6.25 mg PO BID [facility] Last Admin: 06/03/17 08:29 Dose: 6.25 mg Clopidogrel Bisulfate (Plavix) 75 mg PO DAILY [facility] Last Admin: 06/03/17 08:29 Dose: 75 mg Fluticasone Propionate (Flonase) 0 gm NASBOTH DAILY@2100 [facility] Last Admin: 06/02/17 22:34 Dose: 2 sprays Furosemide (Lasix) 40 mg PO DAILY [facility] Last Admin: 06/03/17 08:28 Dose: 40 mg Heparin Sodium (Porcine) (Heparin Sodium) 5,000 units SUBCUT Q8HR [facility] Last Admin: 06/03/17 05:20 Dose: 5,000 units Lisinopril (Prinivil) 20 mg PO DAILY [facility] Last Admin: 06/03/17 08:29 Dose: 20 mg Lorazepam (Ativan) 0.5 mg PO Q6H PRN PRN Reason: Anxiety Methylprednisolone Sodium Succinate (Solu-Medrol) 40 mg IVPUSH Q8H [facility] Last Admin: 06/03/17 05:23 Dose: 40 mg Metoclopramide HCl (Reglan) 10 mg PO TIDAC [facility] Last Admin: 06/03/17 10:16 Dose: Not Given Multivitamins (Thera) 1 each PO DAILY [facility] Last Admin: 06/03/17 08:28 Dose: 1 each Omeprazole (Omeprazole) 40 mg PO BEDTIME [facility] Last Admin: 06/02/17 22:33 Dose: 40 mg Potassium Chloride (Klor-Con 10) 10 meq PO DAILY [facility] Last Admin: 06/03/17 08:28 Dose: 10 meq Sodium Chloride (Saline Flush) 10 ml FLUSH ASDIRECTED PRN PRN Reason: Keep Vein Open Last Admin: 06/03/17 05:28 Dose: 10 ml Sodium Chloride (Saline Flush) 10 ml FLUSH ASDIRECTED PRN PRN Reason: Keep Vein Open Tiotropium [place] (Spiriva Handihaler) 18 mcg INH DAILYRT [facility] Last Admin: 06/03/17 08:31 Dose: 18 mcg Zolpidem Tartrate (Ambien) 5 mg PO BEDTIME PRN PRN Reason: Sleep Last Admin: 06/02/17 22:49 Dose: 5 mg Discontinued Medications Albuterol/Ipratropium (Duoneb 3.0-0.5 Mg/3 Ml) 3 ml NEB ONETIME ONE Stop: 06/01/17 17:59 Last Admin: 06/01/17 18:09 Dose: 3 ml Albuterol/Ipratropium (Duoneb 3.0-0.5 Mg/3 Ml) 3 ml NEB Q6HRRT [facility] Ceftriaxone Sodium (Rocephin) 1 gm IVPUSH Q24H [facility] Last Admin: 06/02/17 22:16 Dose: Not Given Fluticasone Propionate (Flonase) 0 gm NASBOTH DAILY [facility] Last Admin: 06/02/17 15:48 Dose: Not Given Hydrocortisone Sodium Succinate (Solu-Cortef) 40 mg IVPUSH Q8H [facility] Azithromycin 500 mg/ Sodium (Chloride) 250 mls @ 250 mls/hr IV Q24H [facility] Lorazepam (Ativan) 0.25 mg PO Q6H PRN PRN Reason: Anxiety Lorazepam (Ativan) 1 mg PO ONETIME ONE Stop: 06/02/17 15:24 Last Admin: 06/02/17 15:57 Dose: 1 mg Methylprednisolone Sodium Succinate (Solu-Medrol) 125 mg IVPUSH ONETIME ONE Stop: 06/01/17 18:53 Last Admin: 06/01/17 19:01 Dose: 125 mg Non-Form (Perforomist 2 Ml Neb) 2 ml NEB BID [facility] Last Admin: 02/02/18 15:49 Dose: Not Given - Exam General: Reports: Alert, Oriented Neck: Reports: Supple Lungs: Reports: Normal Respiratory Effort, Decreased Breath Sounds Cardiovascular: Reports: Regular Rate, Regular Rhythm GI/Abdominal Exam: Normal Bowel Sounds, Soft, Non-Tender, No Distention Extremities: No Pedal Edema *Q Meaningful Use (DIS) - VTE *Q VTE Criteria *Q: - Stroke *Q Stroke Criteria *Q: - AMI *Q AMI Criteria *Q:
[2017-06-03 11:49] VITALS: BP 114/64
--- NOTE | 2017-06-05 07:14 | EKG ---
06/01/2017- DIMPLE MURPHY - FINDINGS: EKG per my reading shows sinus rhythm with a heart rate of 100. MOD /[id number]
== END 2017-06-03 16:03 | disposition home or self-care (01) | DRG 191 ==
LOC: DL.ED 16:35 → UNDOADMIN 19:46 → DL.MS 19:46
PROVIDERS: ADMIT Internal Medicine; ATTEND Internal Medicine
DX: J44.1 Chronic obstructive pulmonary disease with (acute) exacerbation (principal); R09.02 Hypoxemia; I50.22 Chronic systolic (congestive) heart failure; R14.0 Abdominal distension (gaseous); I25.10 Atherosclerotic heart disease of native coronary artery without angina pectoris; Z99.81 Dependence on supplemental oxygen; Z79.52 Long term (current) use of systemic steroids; K21.9 Gastro-esophageal reflux disease without esophagitis; I11.0 Hypertensive heart disease with heart failure
CPT/HCPCS: 36415; 71046; 74021; 80053; 82150; 83605; 83690; 83880; 84484; 85025; 87040 ×2; 93005; 93010; 94640 ×2; 96374; 99284; J2930; 80048; 81001; 94010; 99285; A9270-GY; J1644; J2920; J7050; J7620-GY

== ENCOUNTER 2017-07-09 16:50 | Observation (INO) | payer MEDICARE, BC ==
[2017-07-09] MEDS ORDERED: Sodium Chloride 0.9% 10 ML Syringe FLUSH PRN ×2 (17:26→19:57)
[2017-07-09 18:09] LABS: CHLORIDE,CL 99 mmol/L (101-111); SODIUM,NA 142 mmol/L (135-145)
[2017-07-09] MEDS ORDERED: methylPREDNISolone Sodium Succinate 125 MG/2 ML SDV IVPUSH ONE (18:51)
[2017-07-09] MEDS ORDERED: Albuterol/Ipratropium 3.0-0.5 MG/3 ML Neb Soln NEB ONE (18:51)
--- NOTE | 2017-07-09 19:09 | EDM.PDOC ---
Scribed by Jada Tucker 07/09/17 190 for Juan Parker MD ED HPI GENERAL MEDICAL PROBLEM - General Chief Complaint: Respiratory Problem Stated Complaint: BY AMBULANCE Time Seen by Provider: 07/09/17 16:51 Source of Information: Reports: EMS, EMS Notes Reviewed, RN, RN Notes Reviewed History Limitations: Reports: No Limitations - History of Present Illness INITIAL COMMENTS - FREE TEXT/NARRATIVE: Arrives from home by [place] [facility] with c/o progressively worsening shortness of breath x1 week and "profound" generalized weakness. Denies fever, chills, chest pain, N/V, sputum production, or edema. Pt uses supplemental oxygen at 3L/min. continuously at home. Pt states he has become so weak that he cannot walk across a room without assist. or stopping to rest. He was exposed to influenza last week. Onset: Gradual Duration: Week(s): (1), Constant, Getting Worse Location: Reports: Chest, Generalized Severity: Severe Improves with: Reports: Rest Worsens with: Reports: Other (activity) Associated Symptoms: Reports: No Other Symptoms Treatments MANAGER LVN: Reports: Breathing Treatments, Home Treatments, Other Medication (s), Oxygen - Related Data Allergies Allergy/AdvReac Type Severity Reaction Status Date / Time No Known Allergies Allergy Verified 07/09/17 16:59 Home Meds: Home Meds Albuterol [IJD: Ventolin HFA] 3 puff INH Q4HR PRN 10/09/16 [History] Aspirin [Halfprin] 81 mg PO DAILY 10/09/16 [History] Budesonide [Pulmicort] 2 ml NEB BID 10/09/16 [History] Clopidogrel Bisulfate [Clopidogrel] 75 mg PO DAILY 10/09/16 [History] Fluticasone Propionate 2 spray HELEN DAILY 10/09/16 [History] Formoterol [Perforomist] 2 ml NEB BID 10/09/16 [History] Furosemide [Lasix] 40 mg PO DAILY 10/09/16 [History] Multivitamin [Multi-Day Vitamins] 1 tab PO DAILY 10/09/16 [History] Omeprazole 40 mg PO BEDTIME 10/09/16 [History] Potassium Chloride 10 meq PO DAILY 10/09/16 [History] Tiotropium [Spiriva Handihaler] 2 puff INH DAILY 10/09/16 [History] atorvaSTATin Calcium [Atorvastatin Calcium] 40 mg PO BEDTIME 10/09/16 [History] Carvedilol 6.25 mg PO BID 06/01/17 [History] LORazepam [Ativan] 0.5 mg PO TID PRN 06/01/17 [History] Lisinopril 20 mg PO DAILY 06/01/17 [History] Metoclopramide [Reglan] 10 mg PO TIDAC #30 tab 06/03/17 [Rx] predniSONE [predniSONE Dose Pack] 10 mg PO DAILY 07/09/17 [History] Past Medical History HEENT History: Reports: Impaired Vision Other HEENT History: wears glasses Cardiovascular History: Reports: Heart Failure, Hypertension Respiratory History: Reports: COPD Gastrointestinal History: Reports: GERD Psychiatric History: Reports: Anxiety Immunologic History: Reports: None Oncologic (Cancer) History: Reports: None Social & Family History - Family History Family Medical History: Noncontributory - Tobacco Use Smoking Status *Q: Former Smoker Years of Tobacco use: 50 Packs/Tins Daily: 0.5 Used Tobacco, but Quit: Yes Month Tobacco Last Used: october 15 Second Hand Smoke Exposure: No - Caffeine Use Caffeine Use: Reports: Coffee, Soda - Recreational Drug Use Recreational Drug Use: No - Living Situation & Occupation Living situation: Reports: with Family Occupation: Retired ED ROS GENERAL - Review of Systems Review Of Systems: ROS reveals no pertinent complaints other than HPI. ED EXAM, GENERAL - Physical Exam Exam: See Below Exam Limited By: No Limitations General Appearance: Alert, No Apparent Distress, Anxious, Other (chronically ill appearing) Ears: Normal External Exam, Hearing Grossly Normal Nose: Normal Inspection, Normal Mucosa, No Blood Throat/Mouth: Normal Lips, Normal Teeth, Normal Gums, Normal Oropharynx, Normal Voice, No Airway Compromise, Other (dry oral membranes) Head: Atraumatic, Normocephalic Neck: Normal Inspection, Supple, Non-Tender, Full Range of Motion. No: Lymphadenopathy (L), Lymphadenopathy (R) Respiratory/Chest: No Respiratory Distress, No Accessory Muscle Use, Chest Non- Tender, Decreased Breath Sounds, Wheezing, Prolonged Expiration. No: Crackles, Rales, Rhonchi Cardiovascular: Regular Rate, Rhythm, No Edema GI/Abdominal: Normal Bowel Sounds, Soft, Non-Tender, No Distention. No: Guarding, Rigid, Rebound (Male) Exam: Deferred Rectal (Males) Exam: Deferred Back Exam: Normal Inspection Extremities: Normal Inspection, Normal Range of Motion, Non-Tender, No Pedal Edema Neurological: Alert, Oriented, No Motor/Sensory Deficits, Other (generalized weakness) Psychiatric: Anxious Skin Exam: Warm, Dry, Intact, Normal Color, No Rash EKG INTERPRETATION EKG Date: 07/09/17 Time: 16:37 Rhythm: Other (sinus tachycardia) Rate (Beats/Min): 94 [place]: Normal P-Wave: Present QRS: Other (multiform PVCs. Leftanterior fascicular block.) ST-T: Normal QT: Normal Course - Vital Signs Last Recorded V/S: Last Vital Signs Temp 37.0 C 07/09/17 17:06 Pulse 97 07/09/17 16:54 Resp 18 07/09/17 16:54 BP 131/76 07/09/17 17:06 Pulse Ox 97 07/09/17 16:54 Oxygen saturations drop to 88% with ambulation, and conversation. - Orders/Labs/Meds Orders: Active Orders 24 hr Category Date Time Status EKG 12 Lead [EKG Documentation Completion] [RC] STAT Care 07/09/17 17:26 Active Peripheral IV Care [RC] . DIRECTED Care 07/09/17 17:27 Active RT Aerosol Therapy [RC] ASDIRECTED Care 07/09/17 18:51 Active CULTURE BLOOD [BC] Stat Lab 07/09/17 16:36 Received CULTURE BLOOD [BC] Stat Lab 07/09/17 16:43 Received Sodium Chloride 0.9% [Saline Flush] Med 07/09/17 17:26 Active 10 ml FLUSH ASDIRECTED PRN Blood Culture x2 Reflex Set [OM.PC] Stat Oth 07/09/17 17:26 Ordered Peripheral IV Insertion Adult [OM.PC] Stat Oth 07/09/17 17:26 Ordered Medication Orders Sodium Chloride (Saline Flush) 10 ml FLUSH ASDIRECTED PRN PRN Reason: Keep Vein Open Labs: Laboratory Tests 07/09/17 07/09/17 07/09/17 Range/Units 16:36 16:36 16:36 WBC 9.9 (5.0-10.0) 10^3/uL RBC 4.20 L (4.6-6.2) 10^6/uL Hgb 12.7 L (14.0-18.0) g/dL Hct 39.5 L (40.0-54.0) % MCV 94.0 D (80-100) fL MCH 30.2 (27.0-34.0) pg MCHC 32.2 L (33.0-35.0) g/dL Plt Count 249 (150-450) 10^3/uL Neut % (Auto) 68.2 (42.2-75.2) % Lymph % (Auto) 18.7 L (20.5-50.1) % [place] % (Auto) 11.0 H (2-8) % Eos % (Auto) 1.6 (1.0-3.0) % Baso % (Auto) 0.5 (0.0-1.0) % Sodium 142 (135-145) mmol/L Potassium 3.3 L (3.6-5.0) mmol/L Chloride 99 L (101-111) mmol/L Carbon Dioxide 36.0 H (21.0-31.0) mmol/L Anion Gap 10.3 BUN 22 H (7-18) mg/dL Creatinine 1.0 (0.6-1.3) mg/dL Est Cr Clr Drug Dosing 57.00 mL/min Estimated GFR (MDRD) > 60 BUN/Creatinine Ratio 22.00 Glucose 116 H (74-105) mg/dL Lactic Acid 1.3 (0.5-2.2) mmol/L Calcium 8.9 (8.4-10.2) mg/dl Total Bilirubin 0.5 (0.2-1.0) mg/dL AST 20 (10-42) IU/L ALT 23 (10-60) IU/L Alkaline Phosphatase 68 (42-121) IU/L Troponin I < 0.02 (0.00-0.02) ng/ml B-Natriuretic Peptide 58 (0-100) pg/ml Total Protein 6.4 L (6.7-8.2) g/dl Albumin 3.5 (3.2-5.5) g/dl Globulin 2.9 Albumin/Globulin Ratio 1.21 Urine Color (YELLOW) Urine Appearance (CLEAR) Urine pH (5.0-9.0) Ur Specific [place] (1.005-1.030) Urine Protein (NEGATIVE) Urine Glucose (UA) (NEGATIVE) Urine Ketones (NEGATIVE) Urine Occult Blood (NEGATIVE) Urine Nitrite (NEGATIVE) Urine Bilirubin (NEGATIVE) Urine Urobilinogen (0.2-1.0) mg/dL Ur Leukocyte Esterase (NEGATIVE) Urine RBC /HPF Urine WBC (0-5/HPF) /HPF Ur Epithelial Cells /HPF Urine Bacteria (0-FEW/HPF) /HPF 07/09/17 Range/Units 17:22 WBC (5.0-10.0) 10^3/uL RBC (4.6-6.2) 10^6/uL Hgb (14.0-18.0) g/dL Hct (40.0-54.0) % MCV (80-100) fL MCH (27.0-34.0) pg MCHC (33.0-35.0) g/dL Plt Count (150-450) 10^3/uL Neut % (Auto) (42.2-75.2) % Lymph % (Auto) (20.5-50.1) % [place] % (Auto) (2-8) % Eos % (Auto) (1.0-3.0) % Baso % (Auto) (0.0-1.0) % Sodium (135-145) mmol/L Potassium (3.6-5.0) mmol/L Chloride (101-111) mmol/L Carbon Dioxide (21.0-31.0) mmol/L Anion Gap BUN (7-18) mg/dL Creatinine (0.6-1.3) mg/dL Est Cr Clr Drug Dosing mL/min Estimated GFR (MDRD) BUN/Creatinine Ratio Glucose (74-105) mg/dL Lactic Acid (0.5-2.2) mmol/L Calcium (8.4-10.2) mg/dl Total Bilirubin (0.2-1.0) mg/dL AST (10-42) IU/L ALT (10-60) IU/L Alkaline Phosphatase (42-121) IU/L Troponin I (0.00-0.02) ng/ml B-Natriuretic Peptide (0-100) pg/ml Total Protein (6.7-8.2) g/dl Albumin (3.2-5.5) g/dl Globulin Albumin/Globulin Ratio Urine Color Yellow (YELLOW) Urine Appearance Clear (CLEAR) Urine pH 7.0 (5.0-9.0) Ur Specific [place] 1.015 (1.005-1.030) Urine Protein Negative (NEGATIVE) Urine Glucose (UA) Negative (NEGATIVE) Urine Ketones Negative (NEGATIVE) Urine Occult Blood Negative (NEGATIVE) Urine Nitrite Negative (NEGATIVE) Urine Bilirubin Negative (NEGATIVE) Urine Urobilinogen 0.2 (0.2-1.0) mg/dL Ur Leukocyte Esterase Negative (NEGATIVE) Urine RBC 0-5 /HPF Urine WBC 0-5 (0-5/HPF) /HPF Ur Epithelial Cells Occasional /HPF Urine Bacteria Few (0-FEW/HPF) /HPF Meds: Medications Generic Name Dose Route Start Last Admin Trade Name Freq PRN Reason Stop Dose Admin Sodium Chloride 10 ml 07/09/17 17:26 Saline Flush FLUSH ASDIRECTED PRN Keep Vein Open Discontinued Medications Generic Name Dose Route Start Last Admin Trade Name Freq PRN Reason Stop Dose Admin Albuterol/Ipratropium 3 ml 07/09/17 18:51 Duoneb 3.0-0.5 Mg/3 Ml NEB 07/09/17 18:52 ONETIME ONE Methylprednisolone Sodium Succinate 125 mg 07/09/17 18:51 Solu-Medrol IVPUSH 07/09/17 18:52 ONETIME ONE - Radiology Interpretation Free Text/Narrative:: Chest x-ray: COPD and other chronic findings as described above. No sign of acute cardiopulmonary abnormality or interval change. See rad report. Departure - Departure Time of Disposition: 19:00 (admitted to Dr. Mercer) Disposition: Admitted As Inpatient 67 Condition: Serious Clinical Impression: Acute exacerbation of chronic obstructive pulmonary disease (COPD), Generalized weakness, Exposure to influenza - Discharge Information Forms: ED Department Discharge - My Orders Last 24 Hours: My Active Orders 07/09/17 16:36 CULTURE BLOOD [BC] Stat 07/09/17 16:43 CULTURE BLOOD [BC] Stat 07/09/17 17:26 EKG 12 Lead [EKG Documentation Completion] [RC] STAT Sodium Chloride 0.9% [Saline Flush] 10 ml FLUSH ASDIRECTED PRN Blood Culture x2 Reflex Set [OM.PC] Stat Peripheral IV Insertion Adult [OM.PC] Stat 07/09/17 17:27 Peripheral IV Care [RC] . DIRECTED 07/09/17 18:51 RT Aerosol Therapy [RC] ASDIRECTED - Assessment/Plan Last 24 Hours: My Active Orders 07/09/17 16:36 CULTURE BLOOD [BC] Stat 07/09/17 16:43 CULTURE BLOOD [BC] Stat 07/09/17 17:26 EKG 12 Lead [EKG Documentation Completion] [RC] STAT Sodium Chloride 0.9% [Saline Flush] 10 ml FLUSH ASDIRECTED PRN Blood Culture x2 Reflex Set [OM.PC] Stat Peripheral IV Insertion Adult [OM.PC] Stat 07/09/17 17:27 Peripheral IV Care [RC] . DIRECTED 07/09/17 18:51 RT Aerosol Therapy [RC] ASDIRECTED I have read and agree with the documentation that has been completed regarding this visit. By signing this record, I attest that the documentation was completed in my physical presence and is an accurate record of the encounter.
[2017-07-09] MEDS ORDERED: Loperamide 2 MG Cap PO PRN (19:51)
[2017-07-09] MEDS ORDERED: Potassium Chloride 10 MEQ Tab.ER PO ONE (19:52)
[2017-07-09] MEDS ORDERED: Acetaminophen 325 MG Tab PO PRN (19:57)
[2017-07-09] MEDS ORDERED: Ondansetron 4 MG Tab.DIS PO PRN (19:57)
--- NOTE | 2017-07-09 20:04 | PCM.HP ---
H&P History of Present Illness - General Date of Service: 07/09/17 Admit Problem/Dx: Admission Diagnosis/Problem Admission Diagnosis/Problem Short of breath on exertion Source of Information: Patient, Family - History of Present Illness Initial Comments - Free Text/Narative: The patient is an 81-year-old gentleman with severe COPD who is oxygen dependent. He has cardiomyopathy with ejection fraction of 25-30%. The patient lives alone. Has been having complains of bloating, easy satiety, on and off diarrhea for weeks. He is complaining golf shortness of breath with activity, even little activity like walking inside of his home is making him too tired and short of breath. The patient was recently exposed to daughter was diagnosed with with influenza. Nevertheless the patient had no fever, has a chronic cough which is not significantly different now. No body aches. The patient has chronic abdominal complaints of bloating related to food. This got better after taking metoclopramide. Yesterday and the day before had no bowel movements. Today had " good bowel movement in the morning" then 3-5 loose bowel movements followed. - Related Data Allergies/Adverse Reactions: Allergies Allergy/AdvReac Type Severity Reaction Status Date / Time No Known Allergies Allergy Verified 07/09/17 16:59 Home Medications: Home Meds Albuterol [IJD: Ventolin HFA] 3 puff INH Q4HR PRN 10/09/16 [History] Aspirin [Halfprin] 81 mg PO DAILY 10/09/16 [History] Budesonide [Pulmicort] 2 ml NEB BID 10/09/16 [History] Clopidogrel Bisulfate [Clopidogrel] 75 mg PO DAILY 10/09/16 [History] Fluticasone Propionate 2 spray HELEN DAILY 10/09/16 [History] Formoterol [Perforomist] 2 ml NEB BID 10/09/16 [History] Furosemide [Lasix] 40 mg PO DAILY 10/09/16 [History] Multivitamin [Multi-Day Vitamins] 1 tab PO DAILY 10/09/16 [History] Omeprazole 40 mg PO BEDTIME 10/09/16 [History] Potassium Chloride 10 meq PO DAILY 10/09/16 [History] Tiotropium [Spiriva Handihaler] 2 puff INH DAILY 10/09/16 [History] atorvaSTATin Calcium [Atorvastatin Calcium] 40 mg PO BEDTIME 10/09/16 [History] Carvedilol 6.25 mg PO BID 06/01/17 [History] LORazepam [Ativan] 0.5 mg PO TID PRN 06/01/17 [History] Lisinopril 20 mg PO DAILY 06/01/17 [History] Metoclopramide [Reglan] 10 mg PO TIDAC #30 tab 06/03/17 [Rx] predniSONE [predniSONE Dose Pack] 10 mg PO DAILY 07/09/17 [History] Past Medical History HEENT History: Reports: Impaired Vision Other HEENT History: wears glasses Cardiovascular History: Reports: Heart Failure, Hypertension Respiratory History: Reports: COPD Gastrointestinal History: Reports: GERD Genitourinary History: Reports: Other (See Below) Other Genitourinary History: at times, dribbles with no pressure at times, difficult to go the first time in the AM Musculoskeletal History: Reports: None Neurological History: Reports: None Psychiatric History: Reports: Anxiety Endocrine/Metabolic History: Reports: None Hematologic History: Reports: None Immunologic History: Reports: None Oncologic (Cancer) History: Reports: None Dermatologic History: Reports: None - Infectious Disease History Infectious Disease History: Reports: Chicken Pox, Measles, Mumps - Past Surgical History Head Surgeries/Procedures: Reports: None Social & Family History - Family History Family Medical History: Noncontributory - Tobacco Use Smoking Status *Q: Former Smoker Years of Tobacco use: 50 Packs/Tins Daily: 0.5 Used Tobacco, but Quit: Yes Month Tobacco Last Used: october 15 Second Hand Smoke Exposure: No - Caffeine Use Caffeine Use: Reports: Coffee, Soda - Recreational Drug Use Recreational Drug Use: No - Living Situation & Occupation Living situation: Reports: with Family Occupation: Retired H&P Review of Systems - Review of Systems: Review Of Systems: See Below General: Reports: Malaise, Weakness, Fatigue. Denies: Fever, Chills Pulmonary: Reports: Shortness of Breath (Chronic, worse with activity). Denies : Wheezing Cardiovascular: Denies: Chest Pain, Edema Gastrointestinal: Reports: Constipation, Diarrhea, Distension. Denies: Abdominal Pain, Black Stool, Bloody Stool, Vomiting Psychiatric: Reports: Anxiety. Denies: Confusion Exam - Exam Exam: See Below - Vital Signs Vital Signs: Last Vital Signs Temp 37.0 C 07/09/17 17:06 Pulse 97 07/09/17 16:54 Resp 18 07/09/17 16:54 BP 131/76 07/09/17 17:06 Pulse Ox 97 07/09/17 16:54 Weight: 69.672 kg - Exam General: Alert, Oriented Neck: Supple Lungs: Normal Respiratory Effort, Decreased Breath Sounds. No: Rhonchi, Wheezing Cardiovascular: Regular Rate, Regular Rhythm GI/Abdominal Exam: Soft, Non-Tender, No Distention Extremities: No Pedal Edema Neuro Extensive - Mental Status: Alert, Oriented x3 - Patient Data Result Diagrams: 07/09/17 16:36 07/09/17 16:36 Imaging Impressions Last 24 hrs: EKG per my reading shows sinus rhythm. Chest x-ray per official read: no acute cardiopulmonary disease, signs of COPD seen. *Q Meaningful Use (ADM) - VTE *Q VTE Criteria *Q: VTE Anticoagulation Contraindications: Tx/proc Refused by PT - Stroke *Q Stroke Criteria *Q: - AMI *Q AMI Criteria *Q: - Problem List (1) Exposure to influenza SNOMED Code(s): 269216965 ICD Code: Z20.828 - CONTACT W AND EXPOSURE TO OTH VIRAL COMMUNICABLE DISEASES Status: Acute Current Visit: Yes (2) CAD (coronary artery disease) SNOMED Code(s): 11796546 ICD Code: I25.10 - ATHSCL HEART DISEASE OF [place] CORONARY ARTERY W/O ANG PCTRS Status: Acute Current Visit: No (3) Chronic systolic (congestive) heart failure SNOMED Code(s): 042503747 ICD Code: I50.22 - CHRONIC SYSTOLIC (CONGESTIVE) HEART FAILURE Status: Acute Current Visit: No Problem List Initiated/Reviewed/Updated: Yes Orders Last 24hrs: Active Orders 24 hr Category Date Time Status Patient Status [ADT] Routine ADT 07/09/17 19:57 Ordered Antiembolic Devices [RC] PER UNIT ROUTINE Care 07/09/17 19:59 Ordered Oxygen Therapy [RC] PRN Care 07/09/17 19:57 Ordered RT Aerosol Therapy [RC] ASDIRECTED Care 07/09/17 19:49 Ordered Up With Assistance [RC] ASDIRECTED Care 07/09/17 19:57 Ordered VTE/DVT Education [RC] PER UNIT ROUTINE Care 07/09/17 19:57 Ordered Vital Signs [RC] Q4H Care 07/09/17 19:57 Ordered OT Evaluation and Treatment [CONS] Routine Cons 07/09/17 19:51 Ordered PT Evaluation and Treatment [CONS] Routine Cons 07/09/17 19:51 Ordered 2 Gram Sodium Diet [DIET] Diet 07/09/17 Breakfast Ordered BASIC METABOLIC PANEL,BMP [CHEM] AM Lab 07/10/17 05:15 Ordered CBC WITH AUTO DIFF [HEME] AM Lab 07/10/17 05:15 Ordered TSH ULTRASENSITIVE [CHEM] AM Lab 07/10/17 05:11 Ordered Acetaminophen [Tylenol] Med 07/09/17 19:57 Ordered 650 mg PO Q4H PRN Albuterol/Ipratropium [DuoNeb 3.0-0.5 MG/3 ML] Med 07/09/17 21:00 Ordered 3 ml NEB TID Aspirin [Halfprin] Med 07/10/17 09:00 Ordered 81 mg PO DAILY Budesonide [Pulmicort] Med 07/09/17 21:00 Ordered 0.5 mg NEB BID Carvedilol [Coreg] Med 07/09/17 21:00 Ordered 6.25 mg PO BID Clopidogrel [Plavix] Med 07/10/17 09:00 Ordered 75 mg PO DAILY Fluticasone Propionate [Flonase] Med 07/10/17 09:00 Ordered 2 spray HELEN DAILY Furosemide [Lasix] Med 07/10/17 09:00 Ordered 40 mg PO DAILY LORazepam [Ativan] Med 07/09/17 19:44 Ordered 0.5 mg PO TID PRN Lisinopril [Prinivil] Med 07/10/17 09:00 Ordered 20 mg PO DAILY Loperamide [Imodium] Med 07/09/17 19:51 Ordered 2 mg PO Q6H PRN Metoclopramide [Reglan] Med 07/10/17 08:00 Ordered 10 mg PO TIDAC Multivitamin [Multi-Day Vitamins] Med 07/10/17 09:00 Ordered 1 tab PO DAILY Omeprazole [Omeprazole] Med 07/09/17 21:00 Ordered 40 mg PO BEDTIME Ondansetron [Zofran ODT] Med 07/09/17 19:57 Ordered 4 mg PO Q6H PRN Oseltamivir [Tamiflu] Med 07/10/17 09:00 Ordered 75 mg PO DAILY Potassium Chloride [Klor-Con 10] Med 07/09/17 19:52 Once 40 meq PO ONETIME ONE Potassium Chloride [Potassium Chloride] Med 07/10/17 09:00 Ordered 20 meq PO DAILY Sodium Chloride 0.9% [Saline Flush] Med 07/09/17 19:57 Ordered 10 ml FLUSH ASDIRECTED PRN Tiotropium [Spiriva HandiHaler] Med 07/10/17 09:00 Ordered 2 puff INH DAILY Zolpidem [Ambien] Med 07/09/17 19:57 Ordered 5 mg PO BEDTIME PRN atorvaSTATin Calcium [Atorvastatin Calcium] Med 07/09/17 21:00 Ordered 40 mg PO BEDTIME predniSONE [predniSONE Dose Pack] Med 07/09/17 21:00 Ordered 40 mg PO BID Anticoagulation Contraindications VTE [AST] Per Unit Oth 07/09/17 19:57 Ordered Routine Saline Lock Insert [OM.PC] Routine Oth 07/09/17 19:57 Ordered Sequential Compression Device [OM.PC] Per Unit Routine Oth 07/09/17 19:58 Ordered Resuscitation Status Routine Resus Stat 07/09/17 19:57 Ordered Medication Orders Acetaminophen (Tylenol) 650 mg PO Q4H PRN PRN Reason: Pain (Mild 1-3)/fever Albuterol/Ipratropium (Duoneb 3.0-0.5 Mg/3 Ml) 3 ml NEB TID YANNA Aspirin (Halfprin) 81 mg PO DAILY YANNA Budesonide (Pulmicort) 0.5 mg NEB BID YANNA Carvedilol (Coreg) 6.25 mg PO BID YANNA Clopidogrel Bisulfate (Plavix) 75 mg PO DAILY [facility] Fluticasone Propionate (Flonase) gm HELEN DAILY [facility] Furosemide (Lasix) 40 mg PO DAILY YANNA Lisinopril (Prinivil) 20 mg PO DAILY YANNA Loperamide HCl (Imodium) 2 mg PO Q6H PRN PRN Reason: Diarrhea Lorazepam (Ativan) 0.5 mg PO TID PRN PRN Reason: Anxiety Non-Formulary Medication (Atorvastatin Calcium [Atorvastatin Calcium]) 40 mg PO BEDTIME YANNA Non-Formulary Medication (Metoclopramide [Reglan]) 10 mg PO TIDAC YANNA Non-Formulary Medication (Multivitamin [Multi-Day Vitamins]) 1 tab PO DAILY YANNA Non-Formulary Medication (Omeprazole [Omeprazole]) 40 mg PO BEDTIME YANNA Non-Formulary Medication (Prednisone [Prednisone Dose Pack]) 40 mg PO BID YANNA Non-Formulary Medication (Potassium Chloride [Potassium Chloride]) 20 meq PO DAILY YANNA Ondansetron HCl (Zofran Odt) 4 mg PO Q6H PRN PRN Reason: nausea, able to take PO Oseltamivir Phosphate (Tamiflu) 75 mg PO DAILY [facility] Potassium Chloride (Klor-Con 10) 40 meq PO ONETIME ONE Stop: 07/09/17 19:53 Sodium Chloride (Saline Flush) 10 ml FLUSH ASDIRECTED PRN PRN Reason: Keep Vein Open Last Admin: 07/09/17 19:28 Dose: 10 ml Sodium Chloride (Saline Flush) 10 ml FLUSH ASDIRECTED PRN PRN Reason: Keep Vein Open Tiotropium [place] (Spiriva Handihaler) mcg INH DAILY [facility] Zolpidem Tartrate (Ambien) 5 mg PO BEDTIME PRN PRN Reason: Sleep Assessment/Plan Comment:: The patient is an 81-year-old gentleman with chronic systolic congestive heart failure with ejection fraction of 25-30%. He also has history of COPD, home oxygen dependent. He called the ambulance because he was weak. According to the daughter the weakness has been developing in the past few days. He had exposure to influenza, but no symptoms No apparent chest pain, significantly worse shortness of breath. He has chronic abdominal symptoms of bloating, diarrhea on and off. #1 shortness of breath With chronic hypoxemic respiratory failure This is likely due to a combination of COPD, chronic systolic congestive heart failure. We'll supplement oxygen as needed #2 chronic systolic congestive heart failure with ejection fraction 25-30% This appears compensated. No CHF on chest x-ray, no lower extremity edema. Continue diuretics. Replace potassium. Increase potassium supplement. The patient has cardiology follow-up already set up. #3 chronic COPD There is no severe significant exacerbation. The patient is on his baseline oxygen need. The patient has been started on steroids in the emergency room. I will give him a little systemic steroids boost but I do think that the patient's symptoms are mostly chronic. He has pulmonary follow-up already set up #4 anxiety Associated with chronic diseases and shortness of breath We'll use Ativan as needed #5 abdominal complains Complains of bloating with food, days of diarrhea. We'll continue metoclopramide. Consider follow-up with GI for upper GI endoscopy. #6 DVT prophylaxis will be with SCDs Patient does not want heparin or Lovenox due to subcutaneous hematoma that he had last admission #7 weakness Consult physical and occupational therapy
[2017-07-09] MEDS: predniSONE 20 MG Tab PO SCH (21:12)
[2017-07-09] MEDS: atorvaSTATin 20 MG Tab PO SCH (21:13)
[2017-07-09] MEDS: Carvedilol 6.25 MG Tab PO SCH (21:13)
[2017-07-09] MEDS: Zolpidem 5 MG Tab PO PRN (21:14)
[2017-07-09] MEDS: Omeprazole 20 MG Cap.CR PO SCH (21:14)
[2017-07-09] MEDS: Budesonide 0.5 MG/2 ML Neb Susp NEB SCH (21:14)
[2017-07-09] MEDS: LORazepam 0.5 MG Tab PO PRN (21:14)
[2017-07-09] MEDS: Albuterol/Ipratropium 3.0-0.5 MG/3 ML Neb Soln NEB SCH (21:14)
[2017-07-10] MEDS: Albuterol 0.083% 2.5 MG/3 ML Neb Soln NEB PRN (03:00)
[2017-07-10 07:01] LABS: CHLORIDE,CL 98 mmol/L (101-111); SODIUM,NA 137 mmol/L (135-145)
[2017-07-10] MEDS: Albuterol/Ipratropium 3.0-0.5 MG/3 ML Neb Soln NEB SCH ×3 (08:54→20:47)
[2017-07-10] MEDS: Budesonide 0.5 MG/2 ML Neb Susp NEB SCH ×2 (08:54→20:51)
[2017-07-10] MEDS ORDERED: Non-Formulary Medication 1 Each (Potassium Chloride [Potassium Chloride] 10 MEQ) PO SCH (09:00)
[2017-07-10] MEDS: Potassium Chloride 10 MEQ Tab.ER PO SCH (09:20)
[2017-07-10] MEDS: Furosemide 20 MG Tab PO SCH (09:21)
[2017-07-10] MEDS: Multivitamins,Therapeutic Tab PO SCH (09:21)
[2017-07-10] MEDS: Oseltamivir 75 MG Cap PO SCH (09:21)
[2017-07-10] MEDS: predniSONE 20 MG Tab PO SCH ×2 (09:21→20:46)
[2017-07-10] MEDS: Lisinopril 20 MG Tab PO SCH (09:21)
[2017-07-10] MEDS: Metoclopramide 10 MG Tab PO SCH ×3 (09:22→17:35)
[2017-07-10] MEDS: Carvedilol 6.25 MG Tab PO SCH ×2 (09:22→17:35)
[2017-07-10] MEDS: Aspirin 81 MG Tab.EC PO SCH (09:22)
[2017-07-10] MEDS: Clopidogrel 75 MG Tab PO SCH (09:22)
[2017-07-10] MEDS: Fluticasone Propionate Nasal Spray 16 GM Bottle NAS SCH (09:22)
[2017-07-10] MEDS: Tiotropium Inhaler 18 MCG Inhalation Powder Cap Kit of 5 INH SCH (09:23)
--- NOTE | 2017-07-10 11:42 | PCM.PN ---
- General Info Date of Service: 07/10/17 Admission Dx/Problem (Free Text): Admission Diagnosis/Problem Admission Diagnosis/Problem Short of breath on exertion Subjective Update: feeling ok. Has been up and walking with PT 250 feet while on oxygen no diarrhea, no associated abdominal pain no fever no cp Functional Status: Reports: Pain Controlled - Review of Systems General: Reports: Weakness (chronic). Denies: Fever Pulmonary: Reports: Shortness of Breath (chronic) Cardiovascular: Denies: Chest Pain Gastrointestinal: Denies: Abdominal Pain, Diarrhea, Nausea, Vomiting Neurological: Denies: Confusion - Patient Data Vitals - Most Recent: Last Vital Signs Temp 36.6 C 07/10/17 11:00 Pulse 103 H 07/10/17 11:00 Resp 20 07/10/17 11:00 BP 107/64 07/10/17 11:00 Pulse Ox 97 07/10/17 11:00 Weight - Most Recent: 69.127 kg I&O - Last 24 Hours: Intake & Output 07/09/17 07/10/17 07/10/17 22:59 06:59 14:59 Intake Total 400 200 475 Output Total 300 Balance 400 -100 475 Lab Results Last 24 Hours: Laboratory Results - last 24 hr 07/10/17 07/10/17 07/10/17 Range/Units 06:05 06:05 06:05 WBC 10.9 H (5.0-10.0) 10^3/uL RBC 4.02 L (4.6-6.2) 10^6/uL Hgb 12.1 L (14.0-18.0) g/dL Hct 37.5 L (40.0-54.0) % MCV 93.3 (80-100) fL MCH 30.1 (27.0-34.0) pg MCHC 32.3 L (33.0-35.0) g/dL Plt Count 223 (150-450) 10^3/uL Neut % (Auto) 91.4 H (42.2-75.2) % Lymph % (Auto) 7.7 L (20.5-50.1) % Crawford % (Auto) 0.9 L (2-8) % Eos % (Auto) 0.0 L (1.0-3.0) % Baso % (Auto) 0.0 (0.0-1.0) % Sodium 137 (135-145) mmol/L Potassium 4.0 (3.6-5.0) mmol/L Chloride 98 L (101-111) mmol/L Carbon Dioxide 30.0 (21.0-31.0) mmol/L Anion Gap 13.0 BUN 24 H (7-18) mg/dL Creatinine 1.1 (0.6-1.3) mg/dL Est Cr Clr Drug Dosing 52.37 mL/min Estimated GFR (MDRD) > 60 Glucose 171 H (74-105) mg/dL Calcium 9.0 (8.4-10.2) mg/dl TSH, Ultra Sensitive < 0.02 L (0.45-5.33) uIu/mL Med Orders - Current: Current Medications Acetaminophen (Tylenol) 650 mg PO Q4H PRN PRN Reason: Pain (Mild 1-3)/fever Albuterol (Proventil Neb Soln) 2.5 mg NEB Q2H PRN PRN Reason: Dyspnea Last Admin: 07/10/17 03:00 Dose: 2.5 mg Albuterol/Ipratropium (Duoneb 3.0-0.5 Mg/3 Ml) 3 ml NEB TID [facility] Last Admin: 07/10/17 08:54 Dose: 3 ml Aspirin (Halfprin) 81 mg PO DAILY [facility] Last Admin: 07/10/17 09:22 Dose: 81 mg Atorvastatin Calcium (Lipitor) 40 mg PO BEDTIME [facility] Last Admin: 07/09/17 21:13 Dose: 40 mg Budesonide (Pulmicort) 0.5 mg NEB BID [facility] Last Admin: 07/10/17 08:54 Dose: 0.5 mg Carvedilol (Coreg) 6.25 mg PO BIDMEALS [facility] Last Admin: 07/10/17 09:22 Dose: 6.25 mg Clopidogrel Bisulfate (Plavix) 75 mg PO DAILY [facility] Last Admin: 07/10/17 09:22 Dose: 75 mg Fluticasone Propionate (Flonase) 0 gm HELEN DAILY [facility] Last Admin: 07/10/17 09:22 Dose: 2 sprays Furosemide (Lasix) 40 mg PO DAILY [facility] Last Admin: 07/10/17 09:21 Dose: 40 mg Lisinopril (Prinivil) 20 mg PO DAILY [facility] Last Admin: 07/10/17 09:21 Dose: 20 mg Loperamide HCl (Imodium) 2 mg PO Q6H PRN PRN Reason: Diarrhea Lorazepam (Ativan) 0.5 mg PO TID PRN PRN Reason: Anxiety Last Admin: 07/09/17 21:14 Dose: 0.5 mg Metoclopramide HCl (Reglan) 10 mg PO TIDAC [facility] Last Admin: 07/10/17 09:22 Dose: 10 mg Multivitamins (Thera) 1 each PO DAILY [facility] Last Admin: 07/10/17 09:21 Dose: 1 each Omeprazole (Omeprazole) 40 mg PO BEDTIME [facility] Last Admin: 07/09/17 21:14 Dose: 40 mg Ondansetron HCl (Zofran Odt) 4 mg PO Q6H PRN PRN Reason: nausea, able to take PO Oseltamivir Phosphate (Tamiflu) 75 mg PO DAILY [facility] Last Admin: 07/10/17 09:21 Dose: 75 mg Potassium Chloride (Klor-Con 10) 20 meq PO DAILY [facility] Last Admin: 07/10/17 09:20 Dose: 20 meq Prednisone (Prednisone) 40 mg PO BID [facility] Last Admin: 07/10/17 09:21 Dose: 40 mg Sodium Chloride (Saline Flush) 10 ml FLUSH ASDIRECTED PRN PRN Reason: Keep Vein Open Last Admin: 07/09/17 19:28 Dose: 10 ml Sodium Chloride (Saline Flush) 10 ml FLUSH ASDIRECTED PRN PRN Reason: Keep Vein Open Tiotropium Y[place]ell (Spiriva Handihaler) 18 mcg INH DAILY [facility] Last Admin: 07/10/17 09:23 Dose: 18 mcg Zolpidem Tartrate (Ambien) 5 mg PO BEDTIME PRN PRN Reason: Sleep Last Admin: 07/09/17 21:14 Dose: 5 mg Discontinued Medications Albuterol/Ipratropium (Duoneb 3.0-0.5 Mg/3 Ml) 3 ml NEB ONETIME ONE Stop: 07/09/17 18:52 Last Admin: 07/09/17 19:16 Dose: 3 ml Methylprednisolone Sodium Succinate (Solu-Medrol) 125 mg IVPUSH ONETIME ONE Stop: 07/09/17 18:52 Last Admin: 07/09/17 19:33 Dose: 125 mg Non-Formulary Medication (Potassium Chloride [Potassium Chloride]) 10 meq PO DAILY [facility] Potassium Chloride (Klor-Con 10) 40 meq PO ONETIME ONE Stop: 07/09/17 19:53 Last Admin: 07/09/17 20:31 Dose: 40 meq - Exam Quality Assessment: Supplemental Oxygen General: Alert, Oriented Neck: Supple Lungs: Normal Respiratory Effort, Decreased Breath Sounds Cardiovascular: Regular Rate, Regular Rhythm GI/Abdominal Exam: Normal Bowel Sounds, Soft, Non-Tender Extremities: No Pedal Edema Skin: Warm, Dry Neurological: No New Focal Deficit Psy/Mental Status: Alert, Normal Affect, Normal Mood - Problem List & Annotations (1) Exposure to influenza SNOMED Code(s): 436170484 Code(s): Z20.828 - CONTACT W AND EXPOSURE TO OTH VIRAL COMMUNICABLE DISEASES Status: Acute Current Visit: Yes (2) CAD (coronary artery disease) SNOMED Code(s): 84498987 Code(s): I25.10 - ATHSCL HEART DISEASE OF [place] CORONARY ARTERY W/O ANG PCTRS Status: Acute Current Visit: No (3) Chronic systolic (congestive) heart failure SNOMED Code(s): 789622439 Code(s): I50.22 - CHRONIC SYSTOLIC (CONGESTIVE) HEART FAILURE Status: Acute Current Visit: No - Problem List Review Problem List Initiated/Reviewed/Updated: Yes - My Orders Last 24 Hours: My Active Orders 07/09/17 19:44 LORazepam [Ativan] 0.5 mg PO TID PRN 07/09/17 19:49 RT Aerosol Therapy [RC] ASDIRECTED 07/09/17 19:51 OT Evaluation and Treatment [CONS] Routine PT Evaluation and Treatment [CONS] Routine Loperamide [Imodium] 2 mg PO Q6H PRN 07/09/17 19:57 Patient Status [ADT] Routine Oxygen Therapy [RC] PRN Up With Assistance [RC] ASDIRECTED VTE/DVT Education [RC] PER UNIT ROUTINE Vital Signs [RC] 23,03,07,11,15,19 Acetaminophen [Tylenol] 650 mg PO Q4H PRN Ondansetron [Zofran ODT] 4 mg PO Q6H PRN Sodium Chloride 0.9% [Saline Flush] 10 ml FLUSH ASDIRECTED PRN Zolpidem [Ambien] 5 mg PO BEDTIME PRN Anticoagulation Contraindications VTE [AST] Per Unit Routine Saline Lock Insert [OM.PC] Routine Resuscitation Status Routine 07/09/17 19:58 Sequential Compression Device [OM.PC] Per Unit Routine 07/09/17 19:59 Antiembolic Devices [RC] PER UNIT ROUTINE 07/09/17 21:00 Albuterol/Ipratropium [DuoNeb 3.0-0.5 MG/3 ML] 3 ml NEB TID Budesonide [Pulmicort] 0.5 mg NEB BID Carvedilol [Coreg] 6.25 mg PO BIDMEALS Omeprazole 40 mg PO BEDTIME atorvaSTATin [Lipitor] 40 mg PO BEDTIME predniSONE 40 mg PO BID 07/10/17 02:46 Albuterol [Proventil Neb Soln] 2.5 mg NEB Q2H PRN 07/10/17 02:47 RT Aerosol Therapy [RC] ASDIRECTED 07/10/17 08:00 Metoclopramide [Reglan] 10 mg PO TIDAC 07/10/17 09:00 Aspirin [Halfprin] 81 mg PO DAILY Clopidogrel [Plavix] 75 mg PO DAILY Fluticasone Propionate [Flonase] 0 gm HELEN DAILY Furosemide [Lasix] 40 mg PO DAILY Lisinopril [Prinivil] 20 mg PO DAILY Multivitamins,Therapeutic [Thera] 1 each PO DAILY Oseltamivir [Tamiflu] 75 mg PO DAILY Potassium Chloride [Klor-Con 10] 20 meq PO DAILY Tiotropium [Spiriva HandiHaler] 18 mcg INH DAILY - Plan Plan:: The patient is an 81-year-old gentleman with chronic systolic congestive heart failure with ejection fraction of 25-30%. He also has history of COPD, home oxygen dependent. He called the ambulance because he was weak. According to the daughter the weakness has been developing in the past few days. He had exposure to influenza, but no symptoms No apparent chest pain, significantly worse shortness of breath. He has chronic abdominal symptoms of bloating, diarrhea on and off. #1 shortness of breath With chronic hypoxemic respiratory failure This is likely due to a combination of COPD, chronic systolic congestive heart failure. appears at baseline oxygen need We'll supplement oxygen as needed #2 chronic systolic congestive heart failure with ejection fraction 25-30% This appears compensated. No CHF on chest x-ray, no lower extremity edema. Continue diuretics. Replace potassium. Increase potassium supplement. The patient has cardiology follow-up already set up. #3 chronic COPD There is no severe significant exacerbation. The patient is on his baseline oxygen need. The patient has been started on steroids in the emergency room. will taper off relatively quick I do think that the patient's symptoms are mostly chronic. He has pulmonary follow-up already set up #4 anxiety Associated with chronic diseases and shortness of breath We'll use Ativan as needed #5 abdominal complains Complains of bloating with food, days of diarrhea. We'll continue metoclopramide. Consider follow-up with GI for upper GI endoscopy. #6 DVT prophylaxis will be with SCDs Patient does not want heparin or Lovenox due to subcutaneous hematoma that he had last admission #7 weakness will cont to work with physical and occupational therapy
[2017-07-10] MEDS: LORazepam 0.5 MG Tab PO PRN ×2 (13:41→22:01)
[2017-07-10] MEDS: Omeprazole 20 MG Cap.CR PO SCH (20:45)
[2017-07-10] MEDS: atorvaSTATin 20 MG Tab PO SCH (20:45)
[2017-07-10] MEDS: Zolpidem 5 MG Tab PO PRN (22:02)
[2017-07-11] MEDS: Albuterol 0.083% 2.5 MG/3 ML Neb Soln NEB PRN ×2 (05:45→12:19)
[2017-07-11] MEDS: Budesonide 0.5 MG/2 ML Neb Susp NEB SCH (08:49)
[2017-07-11] MEDS: Albuterol/Ipratropium 3.0-0.5 MG/3 ML Neb Soln NEB SCH ×2 (08:49→14:19)
[2017-07-11] MEDS: Metoclopramide 10 MG Tab PO SCH ×3 (09:17→17:48)
[2017-07-11] MEDS: predniSONE 20 MG Tab PO SCH ×2 (09:17→17:48)
[2017-07-11] MEDS: Clopidogrel 75 MG Tab PO SCH (09:17)
[2017-07-11] MEDS: Furosemide 20 MG Tab PO SCH (09:17)
[2017-07-11] MEDS: Multivitamins,Therapeutic Tab PO SCH (09:17)
[2017-07-11] MEDS: Potassium Chloride 10 MEQ Tab.ER PO SCH (09:17)
[2017-07-11] MEDS: Aspirin 81 MG Tab.EC PO SCH (09:17)
[2017-07-11] MEDS: Oseltamivir 75 MG Cap PO SCH (09:17)
[2017-07-11] MEDS: LORazepam 0.5 MG Tab PO PRN ×2 (09:18→14:35)
[2017-07-11] MEDS: Lisinopril 20 MG Tab PO SCH (09:18)
[2017-07-11] MEDS: Carvedilol 6.25 MG Tab PO SCH ×2 (09:18→17:48)
[2017-07-11] MEDS: Tiotropium Inhaler 18 MCG Inhalation Powder Cap Kit of 5 INH SCH (09:23)
[2017-07-11] MEDS: Fluticasone Propionate Nasal Spray 16 GM Bottle NAS SCH (09:23)
--- NOTE | 2017-07-11 10:19 | PCM.DCSUM1 ---
Discharge Summary - Hospital Course Free Text/Narrative:: The patient is an 81-year-old gentleman with chronic systolic congestive heart failure with ejection fraction of 25-30%. He also has history of COPD, home oxygen dependent. He called the ambulance because he was weak. According to the daughter the weakness has been developing in the past few days. He had exposure to influenza, but no symptoms No apparent chest pain, significantly worse shortness of breath. He has chronic abdominal symptoms of bloating, diarrhea on and off. #1 shortness of breath With chronic hypoxemic respiratory failure This is likely due to a combination of COPD, chronic systolic congestive heart failure. appears at baseline oxygen need #2 chronic systolic congestive heart failure with ejection fraction 25-30% This appears compensated. No CHF on chest x-ray, no lower extremity edema. Continue diuretics. Replaced potassium. Increase potassium supplement. The patient has cardiology follow-up already set up. #3 chronic COPD There is no severe significant exacerbation. The patient is on his baseline oxygen need. The patient has been started on steroids in the emergency room. will taper off relatively quick I do think that the patient's symptoms are mostly chronic. He has pulmonary follow-up already set up #4 anxiety Associated with chronic diseases and shortness of breath He will continue to use Ativan as needed #5 abdominal complains Complains of bloating with food, days of diarrhea. We'll continue metoclopramide. suggested follow-up with GI for evaluation. #6 weakness recommended to f/up with cardiology rehab program #7 His PMD is in [place], he has difficulty with transportation recommended to have a local PMD he wants to make his own appt. - Discharge Data Discharge Date: 07/11/17 Discharge Disposition: Home, Self-Care 01 Condition: Fair - Discharge Diagnosis/Problem(s) (1) Exposure to influenza SNOMED Code(s): 264915994 ICD Code: Z20.828 - CONTACT W AND EXPOSURE TO OTH VIRAL COMMUNICABLE DISEASES Status: Acute Current Visit: Yes (2) CAD (coronary artery disease) SNOMED Code(s): 98174663 ICD Code: I25.10 - ATHSCL HEART DISEASE OF [place] CORONARY ARTERY W/O ANG PCTRS Status: Acute Current Visit: No (3) Chronic systolic (congestive) heart failure SNOMED Code(s): 346757957 ICD Code: I50.22 - CHRONIC SYSTOLIC (CONGESTIVE) HEART FAILURE Status: Acute Current Visit: No - Patient Summary/Data Consults: Consultations 07/09/17 19:51 OT Evaluation and Treatment [CONS] Routine PT Evaluation and Treatment [CONS] Routine - Patient Instructions Diet: Heart Healthy Diet Activity: As Tolerated - Discharge Plan Home Medications: Home Meds Albuterol [IJD: Ventolin HFA] 3 puff INH Q4HR PRN 10/09/16 [History] Aspirin [Halfprin] 81 mg PO DAILY 10/09/16 [History] Budesonide [Pulmicort] 2 ml NEB BID 10/09/16 [History] Clopidogrel Bisulfate [Clopidogrel] 75 mg PO DAILY 10/09/16 [History] Fluticasone Propionate 2 spray HELEN DAILY 10/09/16 [History] Formoterol [Perforomist] 2 ml NEB BID 10/09/16 [History] Furosemide [Lasix] 40 mg PO DAILY 10/09/16 [History] Multivitamin [Multi-Day Vitamins] 1 tab PO DAILY 10/09/16 [History] Omeprazole 40 mg PO BEDTIME 10/09/16 [History] Potassium Chloride 10 meq PO DAILY 10/09/16 [History] Tiotropium [Spiriva Handihaler] 2 puff INH DAILY 10/09/16 [History] atorvaSTATin Calcium [Atorvastatin Calcium] 40 mg PO BEDTIME 10/09/16 [History] Carvedilol 6.25 mg PO BID 06/01/17 [History] LORazepam [Ativan] 0.5 mg PO TID PRN 06/01/17 [History] Lisinopril 20 mg PO DAILY 06/01/17 [History] Metoclopramide [Reglan] 10 mg PO TIDAC #30 tab 06/03/17 [Rx] predniSONE [predniSONE Dose Pack] 10 mg PO DAILY 07/09/17 [History] Theophylline [Theophylline Anhydrous] 300 mg PO BID 07/10/17 [History] Albuterol [IJD: Albuterol] 2.5 mg NEB Q2H PRN nebule 07/11/17 [Rx] Forms: ED Department Discharge Referrals: PCP,None [Primary Care Provider] - (establish new pmd in [facility]/up in 2-3 days) Phil Lo MD [Physician] - (first available appt re: abdominal dyscomfort) - Discharge Summary/Plan Comment DC Time >30 min.: No - General Info Date of Service: 07/11/17 Admission Dx/Problem (Free Text: Admission Diagnosis/Problem Admission Diagnosis/Problem Short of breath on exertion Subjective Update: feeling ok. Has been up and walking with PT feels bloated but no visible sign passing gas no diarrhea, no associated abdominal pain no fever no cp - Review of Systems General: Denies: Fever Pulmonary: Denies: Shortness of Breath Cardiovascular: Denies: Chest Pain Gastrointestinal: Denies: Abdominal Pain, Diarrhea, Nausea, Vomiting - Patient Data Vitals - Most Recent: Last Vital Signs Temp 36.4 C 07/11/17 07:38 Pulse 87 07/11/17 09:18 Resp 20 07/11/17 07:38 BP 109/62 07/11/17 09:18 Pulse Ox 96 07/11/17 08:52 Weight - Most Recent: 70.488 kg I&O - Last 24 hours: Intake & Output 07/10/17 07/11/17 07/11/17 22:59 06:59 14:59 Intake Total 740 300 Output Total 400 700 Balance 340 -400 Med Orders - Current: Current Medications Acetaminophen (Tylenol) 650 mg PO Q4H PRN PRN Reason: Pain (Mild 1-3)/fever Albuterol (Proventil Neb Soln) 2.5 mg NEB Q2H PRN PRN Reason: Dyspnea Last Admin: 07/11/17 05:45 Dose: 2.5 mg Albuterol/Ipratropium (Duoneb 3.0-0.5 Mg/3 Ml) 3 ml NEB TID [facility] Last Admin: 07/11/17 08:49 Dose: 3 ml Aspirin (Halfprin) 81 mg PO DAILY [facility] Last Admin: 07/11/17 09:17 Dose: 81 mg Atorvastatin Calcium (Lipitor) 40 mg PO BEDTIME [facility] Last Admin: 07/10/17 20:45 Dose: 40 mg Budesonide (Pulmicort) 0.5 mg NEB BID [facility] Last Admin: 07/11/17 08:49 Dose: 0.5 mg Carvedilol (Coreg) 6.25 mg PO BIDMEALS [facility] Last Admin: 07/11/17 09:18 Dose: 6.25 mg Clopidogrel Bisulfate (Plavix) 75 mg PO DAILY [facility] Last Admin: 07/11/17 09:17 Dose: 75 mg Fluticasone Propionate (Flonase) 0 gm HELEN DAILY [facility] Last Admin: 07/11/17 09:23 Dose: 2 sprays Furosemide (Lasix) 40 mg PO DAILY [facility] Last Admin: 07/11/17 09:17 Dose: 40 mg Lisinopril (Prinivil) 20 mg PO DAILY [facility] Last Admin: 07/11/17 09:18 Dose: 20 mg Loperamide HCl (Imodium) 2 mg PO Q6H PRN PRN Reason: Diarrhea Lorazepam (Ativan) 0.5 mg PO TID PRN PRN Reason: Anxiety Last Admin: 07/11/17 09:18 Dose: 0.5 mg Metoclopramide HCl (Reglan) 10 mg PO TIDAC [facility] Last Admin: 07/11/17 09:17 Dose: 10 mg Multivitamins (Thera) 1 each PO DAILY [facility] Last Admin: 07/11/17 09:17 Dose: 1 each Omeprazole (Omeprazole) 40 mg PO BEDTIME [facility] Last Admin: 07/10/17 20:45 Dose: 40 mg Ondansetron HCl (Zofran Odt) 4 mg PO Q6H PRN PRN Reason: nausea, able to take PO Oseltamivir Phosphate (Tamiflu) 75 mg PO DAILY [facility] Last Admin: 07/11/17 09:17 Dose: 75 mg Potassium Chloride (Klor-Con 10) 20 meq PO DAILY [facility] Last Admin: 07/11/17 09:17 Dose: 20 meq Prednisone (Prednisone) 40 mg PO BID@0900,1700 [facility] Last Admin: 07/11/17 09:17 Dose: 40 mg Sodium Chloride (Saline Flush) 10 ml FLUSH ASDIRECTED PRN PRN Reason: Keep Vein Open Last Admin: 07/09/17 19:28 Dose: 10 ml Sodium Chloride (Saline Flush) 10 ml FLUSH ASDIRECTED PRN PRN Reason: Keep Vein Open Tiotropium Tofte (Spiriva Handihaler) 18 mcg INH DAILY [facility] Last Admin: 07/11/17 09:23 Dose: 18 mcg Zolpidem Tartrate (Ambien) 5 mg PO BEDTIME PRN PRN Reason: Sleep Last Admin: 07/10/17 22:02 Dose: 5 mg Discontinued Medications Albuterol/Ipratropium (Duoneb 3.0-0.5 Mg/3 Ml) 3 ml NEB ONETIME ONE Stop: 07/09/17 18:52 Last Admin: 07/09/17 19:16 Dose: 3 ml Methylprednisolone Sodium Succinate (Solu-Medrol) 125 mg IVPUSH ONETIME ONE Stop: 07/09/17 18:52 Last Admin: 07/09/17 19:33 Dose: 125 mg Non-Formulary Medication (Potassium Chloride [Potassium Chloride]) 10 meq PO DAILY [facility] Potassium Chloride (Klor-Con 10) 40 meq PO ONETIME ONE Stop: 07/09/17 19:53 Last Admin: 07/09/17 20:31 Dose: 40 meq Prednisone (Prednisone) 40 mg PO BID [facility] Last Admin: 07/10/17 20:46 Dose: 40 mg - Exam Quality Assessment: Reports: Supplemental Oxygen General: Reports: Alert, Oriented Neck: Reports: Supple Lungs: Reports: Clear to Auscultation, Normal Respiratory Effort Cardiovascular: Reports: Regular Rate, Regular Rhythm GI/Abdominal Exam: Normal Bowel Sounds, Soft, Non-Tender. No: Distended, Tender , Hepatomegaly Extremities: No Pedal Edema Skin: Reports: Warm, Dry Neurological: Reports: No New Focal Deficit Psy/Mental Status: Reports: Alert, Normal Affect, Normal Mood *Q Meaningful Use (DIS) - VTE *Q VTE Criteria *Q: VTE Anticoagulation Contraindications: Tx/proc Refused by PT - Stroke *Q Stroke Criteria *Q: - AMI *Q AMI Criteria *Q:
[2017-07-11 17:50] VITALS: BP 120/62
--- NOTE | 2017-07-12 10:45 | EKG ---
07/09/2017- DIMPLE MURPHY - EKG, per my reading, shows sinus rhythm at a rate of 90s with a PVC. [facility] /[id number]
== END 2017-07-11 18:10 | disposition home or self-care (01) ==
LOC: DL.ED 16:50 → INTOOBSV 19:20 → DL.MS 19:20
PROVIDERS: ADMIT Internal Medicine; ATTEND Internal Medicine
DX: Z20.828 Contact with and (suspected) exposure to other viral communicable diseases (principal); I25.10 Atherosclerotic heart disease of native coronary artery without angina pectoris; I50.22 Chronic systolic (congestive) heart failure; I10 Essential (primary) hypertension; J44.9 Chronic obstructive pulmonary disease, unspecified; K21.9 Gastro-esophageal reflux disease without esophagitis; F41.9 Anxiety disorder, unspecified; Z79.82 Long term (current) use of aspirin; Z79.899 Other long term (current) drug therapy; Z87.891 Personal history of nicotine dependence; Z99.81 Dependence on supplemental oxygen
CPT/HCPCS: 36415; 71045; 80048; 80053; 81001; 83605; 83880; 84443; 84484; 85025; 87040; 87804; 93005; 93010; 94640; 96374; 97161; 97165; 99285; A9270; G0378; J2930; J7050; J7620; 97530-GO; 97535-GO